=== PATIENT | female | born 1980 | race Caucasian/White ===

== ENCOUNTER 2016-10-03 17:27 | Emergency (ER) | payer OTHER ==
[2016-10-03 17:31] VITALS: TEMP 97.4
[2016-10-03] MEDS ORDERED: NALOXONE 0.4 MG/ML 10 ML VIAL IVP STA ×3 (17:40→19:12)
[2016-10-03] MEDS ORDERED: SODIUM CHLORIDE 0.9% 500 ML IV STA (17:40)
[2016-10-03] MEDS ORDERED: SODIUM CHLORIDE 0.9% 1,000 ML IV STA (17:40)
[2016-10-03] MEDS ORDERED: NALOXONE 0.4 MG/ML 1 ML VIAL IV STA (17:42)
--- NOTE | 2016-10-03 17:48 | ED ---
Overdose HPI - General Chief Complaint: Overdose Stated Complaint: POSS OVERDOSE Time Seen by Provider: 10/03/16 17:30 Source: patient, family, RN notes reviewed Mode of arrival: wheelchair Limitations: altered mental status - History of Present Illness Initial Comments: This is a 36-year-old female who was found unresponsive on the couch by her 13- year-old daughter prior to admission the patient was brought in by her who found her unresponsive on the couch when he got home from work. She did admit upon arrival here that she snorted heroin at about 4:30 this afternoon. She denies any injection denies any other drug. She denies trying to hurt herself. She was brought in for evaluation. MD Complaint: accidental overdose - Related Data Home Medications Medication Instructions Recorded Confirmed No Known Home Medications [No 06/01/16 10/03/16 Known Home Medications] Allergies Allergy/AdvReac Type Severity Reaction Status Date / Time morphine Allergy Itching Verified 10/03/16 18:40 Review of Systems ROS Statement: Those systems with pertinent positive or pertinent negative responses have been documented in the HPI. ROS Other: All systems not noted in ROS Statement are negative. Past Medical History Past Medical History: Fibromyalgia Additional Past Medical History / Comment(s): endometriosis, IBS History of Any Multi-Drug Resistant Organisms: None Reported Additional Past Surgical History / Comment(s): laprascopy Past Psychological History: Anxiety, Bipolar, Depression, Panic Disorder Smoking Status: Current every day smoker Past Alcohol Use History: None Reported Past Drug Use History: Cocaine, Heroin, Marijuana General Exam - General Exam Comments Initial Comments: Is a well-developed well-nourished lethargic female Limitations: altered mental status General appearance: alert, lethargic Head exam: Present: atraumatic, normocephalic, normal inspection Eye exam: Present: normal appearance, PERRL, EOMI. Absent: scleral icterus, conjunctival injection, periorbital swelling ENT exam: Present: normal exam, mucous membranes moist Neck exam: Present: normal inspection. Absent: tenderness, meningismus, lymphadenopathy Respiratory exam: Present: normal lung sounds bilaterally. Absent: respiratory distress, wheezes, rales, rhonchi, stridor Cardiovascular Exam: Present: regular rate, normal rhythm, normal heart sounds. Absent: systolic murmur, diastolic murmur, rubs, gallop, clicks GI/Abdominal exam: Present: soft, normal bowel sounds. Absent: distended, tenderness, guarding, rebound, rigid Rectal exam: Present: deferred Extremities exam: Present: normal inspection, full ROM, normal capillary refill. Absent: tenderness, pedal edema, joint swelling, calf tenderness Back exam: Present: normal inspection Neurological exam: Present: alert, altered, CN II-XII intact Psychiatric exam: Present: flat affect Skin exam: Present: warm, dry, intact, normal color. Absent: rash Course Vital Signs 10/03/16 10/03/16 10/03/16 17:28 17:45 18:19 Temperature 97.4 F L Pulse Rate 81 95 98 Respiratory 18 18 18 Rate Blood Pressure 109/55 110/57 121/78 O2 Sat by Pulse 90 L 100 100 Oximetry 10/03/16 10/03/16 19:19 20:21 Temperature Pulse Rate 60 67 Respiratory 12 12 Rate Blood Pressure 106/66 106/64 O2 Sat by Pulse 94 L 99 Oximetry - Reevaluation(s) Reevaluation #1: 10/03/16 17:57 Patient is more responsive after the IV Narcan was given. Reevaluation #2: 10/03/16 19:19 Patient was noted to become more lethargic and did require additional Narcan. Reevaluation #3: 10/03/16 21:53 The patient persists in becoming obtunded and very lethargic and eating Narcan. Patient will be placed on Narcan drip I did discuss this with her and with her when she was lucid. Medical Decision Making - Lab Data Result diagrams: 10/03/16 17:40 10/03/16 17:40 Lab Results 10/03/16 10/03/16 10/03/16 Range/Units 17:40 17:40 17:40 WBC 6.4 (3.8-10.6) k/uL RBC 4.31 (3.80-5.40) m/uL Hgb 12.3 (11.4-16.0) gm/dL Hct 38.3 (34.0-46.0) % MCV 88.9 (80.0-100.0) fL MCH 28.5 (25.0-35.0) pg MCHC 32.0 (31.0-37.0) g/dL RDW 13.3 (11.5-15.5) % Plt Count 216 (150-450) k/uL Neutrophils % 54 % Lymphocytes % 30 % Monocytes % 7 % Eosinophils % 6 % Basophils % 1 % Neutrophils # 3.5 (1.3-7.7) k/uL Lymphocytes # 1.9 (1.0-4.8) k/uL Monocytes # 0.5 (0-1.0) k/uL Eosinophils # 0.4 (0-0.7) k/uL Basophils # 0.0 (0-0.2) k/uL Sodium (137-145) mmol/L Potassium (3.5-5.1) mmol/L Chloride (98-107) mmol/L Carbon Dioxide (22-30) mmol/L Anion Gap mmol/L BUN (7-17) mg/dL Creatinine (0.52-1.04) mg/dL Est GFR (MDRD) Af Amer (>60 ml/min/1.73 sqM) Est GFR (MDRD) Non-Af (>60 ml/min/1.73 sqM) Glucose (74-99) mg/dL Calcium (8.4-10.2) mg/dL Magnesium 2.2 (1.6-2.3) mg/dL Total Bilirubin (0.2-1.3) mg/dL AST (14-36) U/L ALT (9-52) U/L Alkaline Phosphatase (38-126) U/L Total Creatine Kinase 82 (30-135) U/L CK-MB (CK-2) 0.4 (0.0-2.4) ng/mL CK-MB (CK-2) Rel Index 0.5 Troponin I <0.012 (0.000-0.034) ng/mL Total Protein (6.3-8.2) g/dL Albumin (3.5-5.0) g/dL 10/03/16 Range/Units 17:40 WBC (3.8-10.6) k/uL RBC (3.80-5.40) m/uL Hgb (11.4-16.0) gm/dL Hct (34.0-46.0) % MCV (80.0-100.0) fL MCH (25.0-35.0) pg MCHC (31.0-37.0) g/dL RDW (11.5-15.5) % Plt Count (150-450) k/uL Neutrophils % % Lymphocytes % % Monocytes % % Eosinophils % % Basophils % % Neutrophils # (1.3-7.7) k/uL Lymphocytes # (1.0-4.8) k/uL Monocytes # (0-1.0) k/uL Eosinophils # (0-0.7) k/uL Basophils # (0-0.2) k/uL Sodium 142 (137-145) mmol/L Potassium 4.2 (3.5-5.1) mmol/L Chloride 108 H (98-107) mmol/L Carbon Dioxide 26 (22-30) mmol/L Anion Gap 8 mmol/L BUN 14 (7-17) mg/dL Creatinine 0.73 (0.52-1.04) mg/dL Est GFR (MDRD) Af Amer >60 (>60 ml/min/1.73 sqM) Est GFR (MDRD) Non-Af >60 (>60 ml/min/1.73 sqM) Glucose 68 L (74-99) mg/dL Calcium 8.8 (8.4-10.2) mg/dL Magnesium (1.6-2.3) mg/dL Total Bilirubin 0.5 (0.2-1.3) mg/dL AST 21 (14-36) U/L ALT 20 (9-52) U/L Alkaline Phosphatase 43 (38-126) U/L Total Creatine Kinase (30-135) U/L CK-MB (CK-2) (0.0-2.4) ng/mL CK-MB (CK-2) Rel Index Troponin I (0.000-0.034) ng/mL Total Protein 6.5 (6.3-8.2) g/dL Albumin 3.7 (3.5-5.0) g/dL - EKG Data -: EKG Interpreted by Me EKG shows normal: sinus rhythm (Sinus rhythm rate of 81 MO interval 208 QRS duration 98 QT/QTC of 400/464 evidence of incomplete right bundle-branch block no acute ST-T wave changes.) Critical Care Time Critical Care Time: Yes Critical Care Time: 37 minutes of critical care time which includes initial history physical lab and x-rays. Multiple reevaluation of the patient. Discussion with the patient and . Discussion with the admitting service and with the office secretary. Disposition Clinical Impression: Accidental heroin overdose Disposition: ADMITTED IP TO THIS HOSP Condition: Serious
[2016-10-03 17:55] LABS: Basophils % (A) 1 %; CH 28.4; CHCM 32.1; Eosinophils # (A) 0.4 k/uL (0-0.7); Eosinophils % (A) 6 %; HCT 38.3 % (34.0-46.0); HDW 2.29; HGB 12.3 gm/dL (11.4-16.0); Luc # (Auto) 0.17; Luc % (Auto) 3; Lymphocytes # (A) 1.9 k/uL (1.0-4.8); Lymphocytes % (A) 30 %; MCH 28.5 pg (25.0-35.0); MCV 88.9 fL (80.0-100.0); Mean Platelet Volume 7.6; Monocytes # (A) 0.5 k/uL (0-1.0); Monocytes % (A) 7 %; Neutrophils # (A) 3.5 k/uL (1.3-7.7); Neutrophils % (A) 54 %; RBC 4.31 m/uL (3.80-5.40); RDW 13.3 % (11.5-15.5); WBC 6.4 k/uL (3.8-10.6); WBC (Perox) 6.68
[2016-10-03 18:18] LABS: Creatine Kinase 82 U/L (30-135)
[2016-10-03 18:31] LABS: Creatine Kinase MB 0.4 ng/mL (0.0-2.4); Troponin I <0.012 ng/mL (0.000-0.034)
[2016-10-03 19:37] LABS: ALT 20 U/L (9-52); AST 21 U/L (14-36); Alkaline Phosphatase 43 U/L (38-126); Anion Gap 8 mmol/L; Blood Urea Nitrogen 14 mg/dL (7-17); Calcium 8.8 mg/dL (8.4-10.2); Carbon Dioxide 26 mmol/L (22-30); Chloride 108 mmol/L (98-107); Glucose 68 mg/dL (74-99); Non-African American GFR(MDRD) >60 (>60 ml/min/1.73 sqM); Potassium 4.2 mmol/L (3.5-5.1); Sodium 142 mmol/L (137-145); Total Bilirubin 0.5 mg/dL (0.2-1.3); Total Protein 6.5 g/dL (6.3-8.2)
[2016-10-03] MEDS ORDERED: NALOXONE 4 MG in SODIUM CHLORIDE 0.9% 100 ML IV SCH (21:45)
[2016-10-03] MEDS ORDERED: SODIUM CHLORIDE 0.9% 1,000 ML IV SCH (22:00)
[2016-10-03 22:22] VITALS: BP 98/54; PULSE 59; RESP 16
--- NOTE | 2016-10-03 22:55 | ED ---
Medical Decision Making - Medical Decision Making The original plan was to admit the patient initiated Rebounding to profound lethargy. A Narcan drip was started the patient was seen to the low from the emergency department prior to the admission being completed. She went with her significant other. She was noted to walk out without difficulty. - Lab Data Result diagrams: 10/03/16 17:40 10/03/16 17:40 Lab Results 10/03/16 10/03/16 10/03/16 Range/Units 17:40 17:40 17:40 WBC 6.4 (3.8-10.6) k/uL RBC 4.31 (3.80-5.40) m/uL Hgb 12.3 (11.4-16.0) gm/dL Hct 38.3 (34.0-46.0) % MCV 88.9 (80.0-100.0) fL MCH 28.5 (25.0-35.0) pg MCHC 32.0 (31.0-37.0) g/dL RDW 13.3 (11.5-15.5) % Plt Count 216 (150-450) k/uL Neutrophils % 54 % Lymphocytes % 30 % Monocytes % 7 % Eosinophils % 6 % Basophils % 1 % Neutrophils # 3.5 (1.3-7.7) k/uL Lymphocytes # 1.9 (1.0-4.8) k/uL Monocytes # 0.5 (0-1.0) k/uL Eosinophils # 0.4 (0-0.7) k/uL Basophils # 0.0 (0-0.2) k/uL Sodium (137-145) mmol/L Potassium (3.5-5.1) mmol/L Chloride (98-107) mmol/L Carbon Dioxide (22-30) mmol/L Anion Gap mmol/L BUN (7-17) mg/dL Creatinine (0.52-1.04) mg/dL Est GFR (MDRD) Af Amer (>60 ml/min/1.73 sqM) Est GFR (MDRD) Non-Af (>60 ml/min/1.73 sqM) Glucose (74-99) mg/dL Calcium (8.4-10.2) mg/dL Magnesium 2.2 (1.6-2.3) mg/dL Total Bilirubin (0.2-1.3) mg/dL AST (14-36) U/L ALT (9-52) U/L Alkaline Phosphatase (38-126) U/L Total Creatine Kinase 82 (30-135) U/L CK-MB (CK-2) 0.4 (0.0-2.4) ng/mL CK-MB (CK-2) Rel Index 0.5 Troponin I <0.012 (0.000-0.034) ng/mL Total Protein (6.3-8.2) g/dL Albumin (3.5-5.0) g/dL Urine Opiates Screen (NotDetected) Ur Oxycodone Screen (NotDetected) Urine Methadone Screen (NotDetected) Ur Propoxyphene Screen (NotDetected) Ur Barbiturates Screen (NotDetected) U Tricyclic Antidepress (NotDetected) Ur Phencyclidine Scrn (NotDetected) Ur Amphetamines Screen (NotDetected) U Methamphetamines Scrn (NotDetected) U Benzodiazepines Scrn (NotDetected) Urine Cocaine Screen (NotDetected) U Marijuana (THC) Screen (NotDetected) 10/03/16 10/03/16 Range/Units 17:40 21:58 WBC (3.8-10.6) k/uL RBC (3.80-5.40) m/uL Hgb (11.4-16.0) gm/dL Hct (34.0-46.0) % MCV (80.0-100.0) fL MCH (25.0-35.0) pg MCHC (31.0-37.0) g/dL RDW (11.5-15.5) % Plt Count (150-450) k/uL Neutrophils % % Lymphocytes % % Monocytes % % Eosinophils % % Basophils % % Neutrophils # (1.3-7.7) k/uL Lymphocytes # (1.0-4.8) k/uL Monocytes # (0-1.0) k/uL Eosinophils # (0-0.7) k/uL Basophils # (0-0.2) k/uL Sodium 142 (137-145) mmol/L Potassium 4.2 (3.5-5.1) mmol/L Chloride 108 H (98-107) mmol/L Carbon Dioxide 26 (22-30) mmol/L Anion Gap 8 mmol/L BUN 14 (7-17) mg/dL Creatinine 0.73 (0.52-1.04) mg/dL Est GFR (MDRD) Af Amer >60 (>60 ml/min/1.73 sqM) Est GFR (MDRD) Non-Af >60 (>60 ml/min/1.73 sqM) Glucose 68 L (74-99) mg/dL Calcium 8.8 (8.4-10.2) mg/dL Magnesium (1.6-2.3) mg/dL Total Bilirubin 0.5 (0.2-1.3) mg/dL AST 21 (14-36) U/L ALT 20 (9-52) U/L Alkaline Phosphatase 43 (38-126) U/L Total Creatine Kinase (30-135) U/L CK-MB (CK-2) (0.0-2.4) ng/mL CK-MB (CK-2) Rel Index Troponin I (0.000-0.034) ng/mL Total Protein 6.5 (6.3-8.2) g/dL Albumin 3.7 (3.5-5.0) g/dL Urine Opiates Screen Detected H (NotDetected) Ur Oxycodone Screen Not Detected (NotDetected) Urine Methadone Screen Not Detected (NotDetected) Ur Propoxyphene Screen Not Detected (NotDetected) Ur Barbiturates Screen Not Detected (NotDetected) U Tricyclic Antidepress Not Detected (NotDetected) Ur Phencyclidine Scrn Not Detected (NotDetected) Ur Amphetamines Screen Not Detected (NotDetected) U Methamphetamines Scrn Not Detected (NotDetected) U Benzodiazepines Scrn Not Detected (NotDetected) Urine Cocaine Screen Detected H (NotDetected) U Marijuana (THC) Screen Detected H (NotDetected) Disposition Clinical Impression: Accidental heroin overdose Disposition: ADMITTED IP TO THIS [facility] Condition: Serious Referrals: Ildefonso Alcala MD [Primary Care Provider] - 1-2 days
== END 2016-10-03 22:59 | disposition other institution (70) ==
LOC: EC 17:27 → 6ICU 21:55 → UNDOADMIN 21:55 → EC 22:59
DX: T40.1X1A Poisoning by heroin, accidental (unintentional), initial encounter (principal); F17.200 Nicotine dependence, unspecified, uncomplicated; Z88.5 Allergy status to narcotic agent
CPT/HCPCS: 99285; 96365; 96376 ×2; 96361 ×5; 36415; 93005; 80053; 82550; 82553; 83735; 84484; 85025; 80306; J2310 ×2

== ENCOUNTER 2016-11-27 12:08 | Inpatient (IN) | payer MEDICAID, OTHER ==
--- NOTE | 2016-11-27 14:09 | ED ---
General Adult HPI - General Chief complaint: Psychiatric Symptoms Stated complaint: Mental Health Time Seen by Provider: 11/27/16 13:19 Source: police, RN notes reviewed, old records reviewed Mode of arrival: ambulatory Limitations: no limitations - History of Present Illness Initial comments: This is a 28-year-old female the ER for evaluation of psychiatric disease and medical evaluation medical clearance. Patient is brought in by PD for evaluation of suicidal thoughts suicidal attempt and suicide note written. - Related Data Home Medications Medication Instructions Recorded Confirmed No Known Home Medications [No 06/01/16 11/27/16 Known Home Medications] Allergies Allergy/AdvReac Type Severity Reaction Status Date / Time morphine Allergy Itching Verified 11/27/16 12:58 Review of Systems ROS Statement: Those systems with pertinent positive or pertinent negative responses have been documented in the HPI. ROS Other: All systems not noted in ROS Statement are negative. Past Medical History Past Medical History: Fibromyalgia Additional Past Medical History / Comment(s): endometriosis, IBS History of Any Multi-Drug Resistant Organisms: None Reported Additional Past Surgical History / Comment(s): laprascopy Past Psychological History: Anxiety, Bipolar, Depression, Panic Disorder Smoking Status: Current every day smoker Past Alcohol Use History: Occasional Past Drug Use History: Cocaine, Heroin, Marijuana General Exam Limitations: no limitations General appearance: alert, in no apparent distress Head exam: Present: atraumatic, normocephalic, normal inspection Eye exam: Present: normal appearance, PERRL, EOMI. Absent: scleral icterus, conjunctival injection, periorbital swelling ENT exam: Present: normal exam, mucous membranes moist Neck exam: Present: normal inspection. Absent: tenderness, meningismus, lymphadenopathy Respiratory exam: Present: normal lung sounds bilaterally. Absent: respiratory distress, wheezes, rales, rhonchi, stridor Cardiovascular Exam: Present: regular rate, normal rhythm, normal heart sounds. Absent: systolic murmur, diastolic murmur, rubs, gallop, clicks GI/Abdominal exam: Present: soft, normal bowel sounds. Absent: distended, tenderness, guarding, rebound, rigid Extremities exam: Present: normal inspection, full ROM, normal capillary refill. Absent: tenderness, pedal edema, joint swelling, calf tenderness Back exam: Present: normal inspection Neurological exam: Present: alert, oriented X3, CN II-XII intact Psychiatric exam: Present: normal affect, normal mood Skin exam: Present: warm, dry, intact, normal color. Absent: rash Course Vital Signs 11/27/16 12:36 Temperature 97.7 F Pulse Rate 91 Respiratory 18 Rate Blood Pressure 138/80 O2 Sat by Pulse 100 Oximetry - Reevaluation(s) Reevaluation #1: 11/27/16 14:09 Patient's medical clear for psychiatric evaluation Medical Decision Making - Medical Decision Making he had a year for evaluation of psychiatric disease, patient stating that it with psychiatrist and will be admitted for psychiatric evaluation and treatment Disposition Clinical Impression: Depression, Suicidal ideation Disposition: TRANSFER TO PSYCH HOSP/UNIT Condition: Fair Referrals: None,Stated [Primary Care Provider] - 1-2 days
[2016-11-27] MEDS ORDERED: LORazepam 2 MG/ML SYRINGE IM STA (17:27)
[2016-11-27] MEDS ORDERED: diphenhydrAMINE 50 MG/ML 1 ML VIAL IM STA (17:27)
[2016-11-27] MEDS ORDERED: ZIPRASIDONE 20 MG VIAL IM PRN (19:18)
[2016-11-27] MEDS ORDERED: MAG HYDROX/AL HYDROX/SIMETH 30 ML CUP PO PRN (19:18)
[2016-11-27] MEDS ORDERED: MAGNESIUM HYDROXIDE 2,400 MG/10 ML CUP PO PRN (19:18)
[2016-11-27] MEDS: NICOTINE 21MG/24HR PATCH TRANSDERM SCH (20:07)
[2016-11-27] MEDS: LORazepam 1 MG TAB PO PRN (20:07)
[2016-11-28] MEDS: LORazepam 1 MG TAB PO PRN ×3 (00:54→18:42)
[2016-11-28] MEDS: ACETAMINOPHEN TAB 325 MG TAB PO PRN ×3 (01:43→18:43)
[2016-11-28 08:44] LABS: Basophils % (A) 1 %; CH 28.3; CHCM 30.9; Eosinophils # (A) 0.2 k/uL (0-0.7); Eosinophils % (A) 2 %; HCT 41.5 % (34.0-46.0); HDW 2.03; HGB 12.6 gm/dL (11.4-16.0); Luc # (Auto) 0.14; Luc % (Auto) 2; Lymphocytes # (A) 1.9 k/uL (1.0-4.8); Lymphocytes % (A) 21 %; MCH 27.9 pg (25.0-35.0); MCHC 30.4 g/dL (31.0-37.0); Mean Platelet Volume 6.7; Monocytes # (A) 0.5 k/uL (0-1.0); Monocytes % (A) 5 %; Neutrophils # (A) 6.1 k/uL (1.3-7.7); Neutrophils % (A) 70 %; RBC 4.51 m/uL (3.80-5.40); RDW 13.3 % (11.5-15.5); WBC 8.8 k/uL (3.8-10.6); WBC (Perox) 8.53
[2016-11-28 09:06] LABS: ALT 25 U/L (9-52); AST 24 U/L (14-36); Alkaline Phosphatase 43 U/L (38-126); Anion Gap 9 mmol/L; Blood Urea Nitrogen 14 mg/dL (7-17); Calcium 8.9 mg/dL (8.4-10.2); Carbon Dioxide 27 mmol/L (22-30); Chloride 107 mmol/L (98-107); Glucose 82 mg/dL (74-99); Non-African American GFR(MDRD) >60 (>60 ml/min/1.73 sqM); Potassium 4.7 mmol/L (3.5-5.1); Sodium 143 mmol/L (137-145); Total Bilirubin 0.4 mg/dL (0.2-1.3); Total Protein 6.6 g/dL (6.3-8.2)
[2016-11-28] MEDS: NICOTINE 21MG/24HR PATCH TRANSDERM SCH ×2 (09:56→22:02)
[2016-11-28 13:48] LABS: Appearance,Urine Clear (Clear); Bilirubin,Urine Negative (Negative); Glucose,Urine (UA) Negative (Negative); Ketones,Urine Negative (Negative); Leukocyte Esterase,Urine Negative (Negative); Nitrite,Urine Negative (Negative); Protein,Urine Negative (Negative); Specific Gravity,Urine 1.003 (1.001-1.035); UA Billing (MACRO vs. MICRO) CHEM; Urobilinogen,Urine <2.0 mg/dL (<2.0)
--- NOTE | 2016-11-28 15:30 | P.CONS ---
History of Present Illness - Reason for Consult Consult date: 11/28/16 Medical management Requesting physician: Jaimee Young - Chief Complaint Severe depression, suicidal ideation, substance abuse, smoking. - History of Present Illness 36-year-old female with chronic history of fibromyalgia, endometriosis , smoking and IBS apparently had chronic depression and bipolar disorders has been going through a rough time in her life she is going through divorce. Patient was in to see her counselor for the first time she show him up home she wrote partially its suicidal note. Patient had pocketknife with her. With the above problem her counselor contacted the cigar maker department patient was petitioned and brought to the emergency department and hospitalized in psych unit with above problem. Review of Systems Constitutional: Reports anorexia, Reports fatigue, Reports lethargy, Reports malaise, Reports weakness, Denies as per HPI, Denies chills, Denies chronic headaches, Denies chronic pain, Denies daytime sleepiness, Denies fever, Denies night sweats, Denies poor appetite, Denies sweats, Denies weight gain, Denies weight loss Eyes: bilateral as per HPI Ears: bilateral: decreased hearing Ears, nose, mouth and throat: Reports ant. neck pain, Reports sinus pressure, Denies as per HPI, Denies bleeding gums, Denies dental pain, Denies dysphagia, Denies epistaxis, Denies headache, Denies hoarseness, Denies mouth pain, Denies nasal congestion, Denies nasal discharge, Denies neck fullness/pressure, Denies neck lump, Denies nose pain, Denies odynophagia, Denies post-nasal drip, Denies sinus pain, Denies swelling in mouth, Denies swelling in throat, Denies sore throat, Denies vertigo, Denies voice changes Cardiovascular: Reports lightheadedness, Reports orthopnea, Denies as per HPI, Denies chest pain, Denies claudication, Denies decreased exercise tolerance, Denies dyspnea on exertion, Denies edema, Denies high blood pressure, Denies irregular heart beat, Denies leg edema, Denies palpitations, Denies paroxysmal nocturnal dyspnea, Denies phlebitis, Denies rapid heart beat, Denies shortness of breath, Denies syncope Respiratory: Reports cough, Reports dyspnea, Denies as per HPI, Denies congestion, Denies cough with sputum, Denies excessive sputum, Denies hemoptysis , Denies home oxygen, Denies pain, Denies pain on inspiration, Denies pleurisy, Denies respiratory infections, Denies sleep apnea, Denies snoring, Denies wheezing Gastrointestinal: Reports dyspepsia, Reports nausea, Denies as per HPI, Denies abdominal pain, Denies belching, Denies bloating, Denies BRBPR, Denies change in bowel habits, Denies coffee ground emesis, Denies constipation, Denies diarrhea, Denies early satiety, Denies excessive gas, Denies heartburn, Denies hematemesis, Denies hematochezia, Denies indigestion, Denies jaundice, Denies lactose intolerance, Denies loss of appetite, Denies melena, Denies vomiting Genitourinary: Reports stress incontinence, Reports urgency, Reports urinary frequency, Denies as per HPI, Denies abnormal vaginal bleeding, Denies decreased libido, Denies difficulty conceiving, Denies difficulty voiding, Denies dysmenorrhea, Denies dyspareunia, Denies dysuria, Denies flank pain, Denies genital sores, Denies hematuria, Denies hot flashes, Denies incomplete emptying, Denies kidney stones, Denies menorrhagia, Denies mixed incontinence, Denies nocturia, Denies pelvic pain, Denies post void dribbling, Denies , Denies prolapse symptoms, Denies urge incontinence, Denies vaginal discharge, Denies vaginal dryness, Denies vaginal itching, Denies vaginal odor Musculoskeletal: Reports arm numbness/tingling, Reports myalgias, Reports neck pain, Denies as per HPI, Denies atrophy, Denies fractures, Denies frequent falls , Denies gait dysfunction, Denies hot joints, Denies leg numbness/tingling, Denies limitation of motion, Denies loss of height, Denies low back pain, Denies morning stiffness, Denies muscle cramps, Denies muscle weakness, Denies neck stiffness, Denies prior amputations, Denies redness of joints, Denies shooting arm pain, Denies shooting leg pain Musculoskeletal: bilateral: ankle pain Integumentary: Reports dryness, Reports pruritus, Reports sores, Reports striae , Denies as per HPI, Denies acne, Denies boils, Denies brittle nails, Denies change in hair/nails, Denies color changes, Denies darkening of skin, Denies depigmentation, Denies foot/leg ulcers, Denies growths, Denies hirsutism, Denies lesions, Denies onychomycosis, Denies rash, Denies unusual bruising, Denies wounds Neurological: Reports hearing difficulties, Reports tingling, Reports transient paralysis, Reports tremors, Reports weakness, Denies as per HPI, Denies aphasia , Denies ataxia, Denies balance difficulties, Denies burning pain, Denies change in mentation, Denies change in smell/taste, Denies change in speech, Denies confusion, Denies convulsions, Denies double vision, Denies gait dysfunction, Denies head injury, Denies headaches, Denies lack of coordination, Denies loss of vision, Denies memory loss, Denies migraines, Denies motor disturbance, Denies numbness, Denies paralysis, Denies paresthesias, Denies seizures, Denies sensory deficit, Denies spasticity, Denies syncope, Denies tic , Denies vertigo, Denies visual changes Psychiatric: Reports mood swings, Denies as per HPI, Denies anhedonia, Denies anxiety, Denies anxiety attacks, Denies change in appetite, Denies change in libido, Denies change in sleep habits, Denies confusion, Denies depression, Denies difficulty concentrating, Denies disorientation, Denies hallucinations, Denies hopelessness, Denies hypersomnia, Denies insomnia, Denies irritability, Denies memory loss, Denies paranoia, Denies sadness/tearfulness, Denies sleep disturbances, Denies suicidal ideation Endocrine: Reports nocturia, Reports polyuria, Denies as per HPI, Denies cold intolerance, Denies deepening of the voice, Denies excessive sweating, Denies excessive thirst, Denies fatigue, Denies flushing, Denies heat intolerance, Denies high blood sugars, Denies increase in ring/shoe/hat size, Denies low blood sugars, Denies palpitations, Denies polydipsia, Denies polyphagia, Denies proptosis, Denies recent glucocorticoid use, Denies thyroid mass, Denies weight change Hematologic/Lymphatic: Reports easy bruising, Denies as per HPI, Denies easy bleeding, Denies lymphadenopathy, Denies lymphedema, Denies thrombophilia Allergic/Immunologic: Reports allergic rhinitis, Denies as per HPI, Denies anaphylaxis, Denies angioedema, Denies gluten intolerance, Denies persistent infections, Denies seasonal allergies, Denies urticaria, Denies wheezing Past Medical History Past Medical History: Fibromyalgia Additional Past Medical History / Comment(s): endometriosis, IBS History of Any Multi-Drug Resistant Organisms: None Reported Additional Past Surgical History / Comment(s): laprascopy Past Psychological History: Anxiety, Bipolar, Depression, Panic Disorder Smoking Status: Current every day smoker Past Alcohol Use History: Occasional Past Drug Use History: Cocaine, Heroin, Marijuana Medications and Allergies Home Medications Medication Instructions Recorded Confirmed Type No Known Home Medications [No 06/01/16 11/27/16 History Known Home Medications] Allergies Allergy/AdvReac Type Severity Reaction Status Date / Time morphine Allergy Itching Verified 11/27/16 12:58 Physical Exam Vitals: Vital Signs Temp Pulse Resp BP 11/28/16 03:44 97.6 F 86 18 109/68 11/27/16 19:54 98 F 79 18 132/85 - Constitutional General appearance: no average body habitus, cooperative, no disheveled, no mild distress, no morbidly obese, no acute distress, no obese, no severe distress, no thin - EENT Eyes: no abnormal pupil, no anicteric sclerae, no disc margins sharp, no edentulous, no EOMI, no PERRLA, no fundus normal, no photophobia, no dentition normal, no poor dentition, no ptosis, no scleral icterus, no normal appearance ENT: no hard of hearing, no hearing grossly normal, no NA/AT, normal oropharynx , no other, no pharyngeal erythema, no thrush, no tonsillar exudates, no tonsillar swelling Ears: bilateral: normal - Neck Neck: no lymphadenopathy, normal ROM, no other, no rigidity, no stridor, no thyromegaly Carotids: bilateral: upstroke normal Thyroid: bilateral: normal size - Respiratory Respiratory: bilateral: CTA, diminished, dullness - Cardiovascular Rhythm: regular Heart sounds: normal: S1, S2 Abnormal Heart Sounds: systolic murmur, no diastolic murmur, no rub, no S3 Gallop, no S4 Gallop, no click, no other - Gastrointestinal General gastrointestinal: no absent bowel sounds, no decreased bowel sounds, no distended, no hepatomegaly, no hyperactive bowel sounds, normal bowel sounds, no organomegaly, no rigid, no scaphoid, soft, no splenomegaly, no tenderness, no umbilical hernia, no ventral hernia - Integumentary Integumentary: no calor, no cellulitis, no cyanotic, no decreased turgor, no flushed, no jaundiced, normal, no normal turgor, pale, no rash, no ulcer - Neurologic Neurologic: CNII-XII intact - Musculoskeletal Musculoskeletal: gait normal, generalized weakness, no strength equal bilaterally, no right sided weakness, no left sided weakness - Psychiatric Psychiatric: A&O x's 3 Results CBC & Chem 7: 11/28/16 08:05 11/28/16 08:05 Labs: Abnormal Lab Results - Last 24 Hours (Table) 11/28/16 Range/Units 08:05 MCHC 30.4 L (31.0-37.0) g/dL Assessment and Plan Plan: 1 severe depression and suicidal ideation: Patient was hospitalized started on Ativan and [place] will be seen psych on regular basis. 2 chronic history of smoking: Patient was started on nicotine patch continue medication. 3 history of fibromyalgia: Patient has been doing well with Tylenol and ibuprofen as needed. 4 IBS: Not on any treatment or management lately continue patient on probiotic. 5 GERD: Continue Pepcid 20 mg daily. 6 chronic substance use: Patient apparently has been clear lately. CODE STATUS: Full code. Dr. Young thank you very much for the consult if I can be any further help to please let me know.
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
[2016-11-28] MEDS: GABAPENTIN 400 MG CAP PO SCH (21:51)
[2016-11-29] MEDS: LORazepam 1 MG TAB PO PRN ×3 (00:15→18:53)
[2016-11-29] MEDS: ACETAMINOPHEN TAB 325 MG TAB PO PRN ×3 (00:16→23:14)
[2016-11-29] MEDS: ARIPiprazole 5 MG TAB PO SCH (09:10)
[2016-11-29] MEDS: NICOTINE 21MG/24HR PATCH TRANSDERM SCH (09:10)
[2016-11-29] MEDS: GABAPENTIN 400 MG CAP PO SCH ×3 (09:10→20:22)
[2016-11-29] MEDS: FAMOTIDINE 20 MG TAB PO SCH (09:10)
[2016-11-29] MEDS ORDERED: traZODone HCL 50 MG TAB PO PRN (13:26)
--- NOTE | 2016-11-29 15:24 | P.PN ---
Progress Note - Text Date of service: 11/29/2016 Chief complaint: "My mood is better today " Subjective: The patient has been seen today as follow-up, chart reviewed, case discussed with the treatment team. The patient stated that she feels better today with this depressed mood feeling more positive and she feels more active. Patient denies feeling hopeless and she denies any suicidal or homicidal thoughts intention or plan. Patient is very preoccupied about discharge and she requested to have contact with social worker aide to secure her bed at [facility] substance use treatment. Patient reported intense nightmares related to her prior trauma. We discussed starting prazosin and she agreed. Patient reported to still has trouble to good sleep and we discussed to give trazodone as needed. The patient denies any manic or psychotic symptoms. She reported that her appetite today is better. Review of other systems: Patient denies any physical symptoms besides what has been mentioned above. No breathing problems, no chest pain reported today. Objective: Vitals has been reviewed. Mental status examination; Appearance:the patient is appears his stated age, adequately groomed was no specific features. Gait/posture: Steady gait, normal arm was swinging, no abnormal movement Attitude and behavior: Patient was engaged, cooperative, was normal eye contact Motor activity: Patient showed no psychomotor agitation or retardation. Speech: Spontaneous, normal rate dressed and articulated. Mood: "Feeling better" Affect: Constricted Thought form: Goal-directed, linear and coherent. Thought content non delusional, denies suicidal or homicidal thoughts Perception: Denies visual hallucinations, described auditory hallucination as hearing her own internal thoughts Attention: No impairment. Patient was able to repeat serial 7. Orientation: Patient patient was fully oriented to time place person and situation. Insight: Patient has fair insight about his psychiatric disorder. Judgment: Patient has fair judgment about his psychiatric treatment. Assessment: Unspecified mood disorder PTSD Opioid use disorder, severe Cannabis use disorder, severe Cocaine use disorder, severe Plan: Continue inpatient level of care Continue Abilify 5 mg by mouth daily as a mood stabilizer Continue Neurontin 400 mg by mouth 3 times a day for anxiety and post acute withdrawal syndrome Start prazosin 1 mg by mouth at bedtime for nightmares, probably increase the dose as tolerated or achieve response Continue monitoring patient's mood symptoms and the social worker aide to prepare for referral to substance use disorder treatment
[2016-11-29] MEDS: PRAZOSIN 1 MG CAP PO SCH (20:22)
[2016-11-30] MEDS: FAMOTIDINE 20 MG TAB PO SCH (08:04)
[2016-11-30] MEDS: NICOTINE 21MG/24HR PATCH TRANSDERM SCH (08:04)
[2016-11-30] MEDS: ARIPiprazole 5 MG TAB PO SCH (08:04)
[2016-11-30] MEDS: GABAPENTIN 400 MG CAP PO SCH ×3 (08:05→21:17)
[2016-11-30] MEDS: LORazepam 1 MG TAB PO PRN (08:05)
--- NOTE | 2016-11-30 11:36 | P.PN ---
Progress Note - Text INTERVERAL HISTORY: Patient seen and records reviewed, discussed with nursing staff. Patient was admitted under petition by her therapist, after completing a home that she wrote, interpreting at as imminent danger/suicidal ideation. Patient reports that she had been in [facility] for substance use, encouraged by her therapist there to write her feelings, which she did then on Wednesday met with her therapist Zi for the first time. He not knowing her, petitioned her for emergency evaluation. Patient reports that she was upset but that she had no intention of killing herself, states she has a daughter who is wonderful and wants to be here for her. Patient reports that she has an admission back to [facility] on December 04, and that she only left it in order to attend her daughter's graduation. Reports that she slept better last night with the new medicine prazosin, but she woke up feeling dizzy and nauseous. She also was started on Abilify 5 mg. Patient is staying with her parents when she is discharged, she is currently involved in a separation/divorce that she says will be messy. She has obtained a order of protection from her , but she needs to add her parents phone number and address to that PPO. That's her plan when she is discharged to go directly to the court for that as well as a new patient appointment with her primary care physician. Patient denies feeling hopeless, worthless, helpless.Denies suicidal ideation, mood improving. MENTAL STATUS EXAM:Patient alert and oriented 3, good eye contact, fair groomed in street clothing. Speech normal volume, rate and production. Coherent, logical and goal directed thought process. No EMMY, no FOI. [No TB/TW/ TI] Denied auditory and visual hallucinations. Denied paranoid ideation, delusions or IOR. Memory grossly intact Cognition above average Mood neutral, affect full range, decreased intensity, congruent with mood. Denies suicidal ideation, denies homicidal ideation. Insight partial; Judgement grossly intact for treatment purposes Assessment: Unspecified mood disorder PTSD Opioid use disorder, severe Cannabis use disorder, severe Cocaine use disorder, severe Plan: Continue inpatient level of care for safety and treatment of mood disorder. Continue Abilify 5 mg by mouth daily as a mood stabilizer Continue Neurontin 400 mg by mouth 3 times a day for anxiety and post acute withdrawal syndrome Continue prazosin 1 mg by mouth at bedtime for nightmares,no increase due to dizziness and nausea. Add Naprosyn for pain. Request hospitalist to review but avoid opiates or controlled substances D/C ativan prn. Continue monitoring patient's mood symptoms and the web content & social media manager to prepare for referral to substance use disorder treatment Family meeting today with BENJI Rosado, if positive will discharge tomorrow morning so she can keep her scheduled appt with PCP. Encourage to keep [facility] appointment. Milieu therapy.
[2016-11-30] MEDS: NAPROXEN 250 MG TAB PO PRN ×2 (14:38→22:51)
[2016-11-30 15:39] VITALS: BMI 24.3
[2016-11-30] MEDS: PRAZOSIN 1 MG CAP PO SCH (21:17)
[2016-12-01 04:57] VITALS: BP 126/79; PULSE 97; RESP 16; TEMP 97.9
[2016-12-01] MEDS: NICOTINE 21MG/24HR PATCH TRANSDERM SCH (08:01)
--- NOTE | 2016-12-01 09:19 | P.DS ---
Providers Date of admission: 11/27/16 18:25 Expected date of discharge: 12/01/16 Attending physician: Jaimee Young MD Consults: 11/27/16 19:18 Consult Physician Routine Consulting Provider: Delvis Fonseca Reason/Comments: H and P and Medical Management Do you want consulting provider notified?: Yes Primary care physician: Stated None Hospital Course: Patient was admitted after being brought to ED by parents on petition by her therapist. Patient had completed a 30 day rehab at [facility] and was discharged to attend her daughter's graduation, with plan to be readmitted December 04. Patient had been encouraged by therapist at [facility] to journal her feelings. She did this and shared her poem about , stabbing self, when she met her outpatient therapist for the first time, he petitioned her. She was adamant about not being suicidal, journaling about thoughts of . She clearly has future oriented plans, ie [facility] admission in 4 days, wanting to be here for her daughter. She was started on abilify, gabapentin, prazosin, trazodone. By second day her mood was improved, sleep slightly better. 3rd day reporting significanlty improved sleep with resulting improved mood. No psychosis No suicidal ideation MENTAL STATUS EXAM:Patient alert and oriented 3, good eye contact, fair groomed in street clothing. Speech normal volume, rate and production. Coherent, logical and goal directed thought process. No EMMY, no FOI. [No TB/TW/ TI] Denied auditory and visual hallucinations. Denied paranoid ideation, delusions or IOR. Memory grossly intact Cognition above average Mood neutral to euthymic, affect full range, decreased intensity, congruent with mood. Denies suicidal ideation, denies homicidal ideation. Insight partial; Judgement grossly intact for treatment purposes Assessment: Unspecified mood disorder PTSD Opioid use disorder, severe Cannabis use disorder, severe Cocaine use disorder, severe Safe to be discharged. SW had family meeting and mother would not allow her to live with them, wanting her to be transferred from here to [facility], but informed no clinical indication. Father agreed to allow patient to stay in a cottage [place] rear of [facility], he is providing patient with transportation as well. Pertinent Studies: none Procedures: none Patient Condition at Discharge: Stable Plan - Discharge Summary New Discharge Prescriptions: ARIPiprazole [Abilify] 5 mg PO DAILY #30 tab Gabapentin [Neurontin] 400 mg PO TID #120 cap Nicotine 21Mg/24Hr Patch [Habitrol] 1 patch TRANSDERM DAILY #7 patch Prazosin [Minipress] 1 mg PO HS #30 cap traZODone HCL [Desyrel] 50 mg PO HS PRN #30 tab PRN Reason: Insomnia Discharge Medication List ARIPiprazole [Abilify] 5 mg PO DAILY #30 tab 12/01/16 [Rx] Gabapentin [Neurontin] 400 mg PO TID #120 cap 12/01/16 [Rx] Nicotine 21Mg/24Hr Patch [Habitrol] 1 patch TRANSDERM DAILY #7 patch 12/01/16 [ Rx] Prazosin [Minipress] 1 mg PO HS #30 cap 12/01/16 [Rx] traZODone HCL [Desyrel] 50 mg PO HS PRN #30 tab 12/01/16 [Rx] Follow up Appointment(s)/Referral(s): None,Stated [Primary Care Provider] - 1-2 days Discharge Disposition: HOME SELF-CARE
[2016-12-01] MEDS: FAMOTIDINE 20 MG TAB PO SCH (10:42)
[2016-12-01] MEDS: ARIPiprazole 5 MG TAB PO SCH (10:42)
[2016-12-01] MEDS: GABAPENTIN 400 MG CAP PO SCH (10:42)
== END 2016-12-01 14:42 | disposition home or self-care (01) | DRG 885 ==
LOC: EC 12:08 → 3MHU 18:25
PROVIDERS: ADMIT Psychiatry & Neurology Addiction Medicine; ATTEND Psychiatry & Neurology Addiction Medicine
DX: F39 Unspecified mood [affective] disorder (principal); F14.20 Cocaine dependence, uncomplicated; R45.851 Suicidal ideations; F12.20 Cannabis dependence, uncomplicated; F11.90 Opioid use, unspecified, uncomplicated; F17.200 Nicotine dependence, unspecified, uncomplicated; F41.0 Panic disorder [episodic paroxysmal anxiety]; F43.10 Post-traumatic stress disorder, unspecified; K21.9 Gastro-esophageal reflux disease without esophagitis; K58.9 Irritable bowel syndrome, unspecified; M79.7 Fibromyalgia; Z79.899 Other long term (current) drug therapy; Z88.5 Allergy status to narcotic agent
CPT/HCPCS: 80053; 80306; 81003; 81025; 82075; 84443; 85025; 96372; 99285

== ENCOUNTER → 2017-07-19 | Outpatient (CLI) | payer OTHER ==
--- NOTE | 2017-07-19 10:20 | US ---
EXAMINATION TYPE: US abdomen complete DATE OF EXAM: 07/19/2017 COMPARISON: NONE CLINICAL HISTORY: 36-year-old female R10.11 RUQ Pain,R10.32 LLQ Pain. Hepatitis C, endometriosis Technique: Multiple sonographic images of the abdomen are obtained. FINDINGS: Liver Length: 17.1 cm Gallbladder Wall: 0.2 cm CBD: 0.5 cm Spleen: 10.9 cm Right Kidney: 12.1 x 6.6 x 4.6 cm Left Kidney: 12.7 x 4.6 x 6.2 cm Pancreas: hyperechoic, tail obscured by overlying bowel gas Liver: Borderline enlarged with slight increased echogenicity. No focal lesion seen. Gallbladder: wnl Evidence for sonographic Alex's sign: No CBD: wnl Spleen: wnl Right Kidney: no hydronephrosis Left Kidney: no hydronephrosis Upper IVC: wnl Abd Aorta: wnl IMPRESSION: Borderline hepatomegaly. Increased echogenicity of the liver could reflect mild hepatic steatosis or other nonspecific hepatocellular disease.
== END | disposition home or self-care (01) ==
LOC: RADUSWWP 07:45
PROVIDERS: ATTEND Family Medicine
DX: R16.0 Hepatomegaly, not elsewhere classified (principal); B18.2 Chronic viral hepatitis C; R10.11 Right upper quadrant pain; R10.32 Left lower quadrant pain
CPT/HCPCS: 76700

== ENCOUNTER 2018-04-14 16:06 | Emergency (ER) | payer OTHER ==
[2018-04-14 16:19] VITALS: RESP 18
[2018-04-14] MEDS ORDERED: LIDOCAINE 1% INJ 10MG/ML (20 ML MDV) SQ ONE (16:41)
[2018-04-14] MEDS ORDERED: SODIUM CHLORIDE 0.9% 1,000 ML IV ONE (16:41)
--- NOTE | 2018-04-14 16:50 | ED ---
Skin/Abscess/FB HPI - General Chief complaint: Skin/Abscess/Foreign Body Stated complaint: ABSCESS ON ARMS Time Seen by Provider: 04/14/18 16:19 Source: patient Mode of arrival: ambulatory Limitations: no limitations - History of Present Illness Initial comments: 37-year-old female past medical history of IV drug use with last use 5 days ago and hepatitis C who presents today for multiple abscesses of the arms bilaterally. She states that last Wednesday she noticed a raised red area on left forearm, then 2 days ago she had her boyfriend attempt to pop it and there is significant pus. Patient then noticed yesterday two more raised lesion on the left wrist and on the right forearm. Patient states she has had some chills but no fever or night sweats. She denies any Patient noticed worsening of the erythema surrounding the abscesses and was concerned about spread of infection. Upon arrival patient's temperature 99.0. Patient appears well and nontoxic. Patient denies any shortness of breath, chest pain, back pain, abdominal pain, nausea or vomiting, numbness or tingling, hematuria, constipation or diarrhea, headaches or visual changes. - Related Data Home Medications Medication Instructions Recorded Confirmed Loratadine [Claritin] 10 mg PO DAILY 04/14/18 04/14/18 Previous Rx's Medication Instructions Recorded Cephalexin [Keflex] 500 mg PO Q6HR 10 Days #40 cap 04/14/18 Ibuprofen [Motrin] 800 mg PO Q8H PRN 7 Days #21 tab 04/14/18 Sulfamethox-Tmp 800-160Mg [Bactrim 1 tab PO Q12HR 10 Days #20 tab 04/14/18 DS 800-160 mg] Allergies Allergy/AdvReac Type Severity Reaction Status Date / Time morphine Allergy Itching Verified 04/14/18 17:06 Review of Systems ROS Statement: Those systems with pertinent positive or pertinent negative responses have been documented in the HPI. ROS Other: All systems not noted in ROS Statement are negative. Constitutional: Reports: fever (felt fevered, no recorded temperature), chills Eyes: Denies: eye pain ENT: Denies: ear pain, throat pain Respiratory: Denies: cough, dyspnea, wheezes, hemoptysis, stridor Cardiovascular: Denies: chest pain, palpitations, dyspnea on exertion Gastrointestinal: Denies: abdominal pain, nausea, vomiting, diarrhea, constipation Genitourinary: Reports: dysuria (last week some dysuria). Denies: urgency, frequency, hematuria Musculoskeletal: Denies: back pain Skin: Reports: lesions (3 abscesses, 2 left arm, one right) Neurological: Denies: headache, weakness, numbness, paresthesias, confusion, abnormal gait Past Medical History Past Medical History: Fibromyalgia Additional Past Medical History / Comment(s): endometriosis, IBS History of Any Multi-Drug Resistant Organisms: None Reported Additional Past Surgical History / Comment(s): laprascopy Past Psychological History: Anxiety, Bipolar, Depression, Panic Disorder Smoking Status: Current every day smoker Past Alcohol Use History: Occasional Past Drug Use History: Heroin, Marijuana General Exam - General Exam Comments Initial Comments: General: The patient is awake and alert, in no distress, and does not appear acutely ill. Eye: Pupils are equal, round and reactive to light, extra-ocular movements are intact. No nystagmus. There is normal conjunctiva bilaterally. No signs of icterus. Ears, nose, mouth and throat: There are moist mucous membranes and no oral lesions. Neck: The neck is supple, there is no tenderness or JVD. Cardiovascular: There is a regular rate and rhythm. No murmur, rub or gallop is appreciated. Respiratory: Lungs are clear to auscultation, respirations are non-labored, breath sounds are equal. No wheezes, stridor, rales, or rhonchi. Musculoskeletal: Normal ROM at the carpals, MCP, DIP and PIP joints, no tenderness. Strength 5/5 of the UE equally b/l. Sensation intact . Radial pulses equal bilaterally 2+. Neurological: A&O x 3. CN II-XII intact, There are no obvious motor or sensory deficits. Coordination appears grossly intact. Speech is normal. Skin: Skin is warm and dry and no rashes or lesions are noted. Abscess of left forearm with central opening with eschar and surrounding erythema spreading cephalically. There is another fluctulance abscess of the distal forearm and right forearm with surrounding erythema. Psychiatric: Cooperative, appropriate mood & affect, normal judgment. Limitations: no limitations Course Vital Signs 04/14/18 04/14/18 16:17 19:48 Temperature 99.0 F 98.9 F Pulse Rate 112 H 100 Respiratory 18 18 Rate Blood Pressure 122/79 140/75 O2 Sat by Pulse 100 98 Oximetry Procedures - Incision & Drainage Consent Obtained: verbal consent Time Out Performed?: Yes Indication: 3 abscess (2 left arm, 1 right) Site: upper extremity Size (cm): 2 (each about 2cm circular in size) Anesthetic Used: lidocaine 1% Amount (mLs): 10 I&D Cleaning Method: Iodine Sterile Field Used?: Yes Scalpel Used: #11 Needle Aspiration Performed?: Yes Irrigation Performed?: Yes I&D Drainage Obtained: Pus, Blood Packing: Other (No packing given size of fluid collections) Culture Obtained?: Yes Patient Tolerated Procedure: well, no complications Medical Decision Making - Medical Decision Making 37yo with exam findings concerning for cellulitis with abscess. Dr. Alvares evaluated the patient [id number], he performed beside ultrasounds of the abscess to ensure no communication with blood vessels and confirm fluid collection location. Labs as noted above. Pt given 1L bolus. Labs as noted above. At this time Dr. Alvares has low suspicion for sepsis, Dr. Alvares plan of care is I&D with outpatient antibiotic treatment. I&D performed by myself on the 3 abscesses using sterile procedure until local anesthetic. Purulent drainage obtained from all 3 sites, I&D site not large enough to warrant packing. Bacitracin and sterile bandage applied. Pt was given starting dose of bactrim and keflex with outpt rx to continue medication. Given history of IVDU, I have concern for MRSA. Strict return parameters were discussed pt verbalized understanding. Pt discharged with primary care f/u with 1-2 days. Blood culture pending. Pt discharged in stable condition. - Lab Data Result diagrams: 04/14/18 17:32 04/14/18 17:32 Lab Results 04/14/18 04/14/18 04/14/18 Range/Units 17:32 17:32 17:32 WBC 13.5 H (3.8-10.6) k/uL RBC 5.23 (3.80-5.40) m/uL Hgb 13.4 (11.4-16.0) gm/dL Hct 42.5 (34.0-46.0) % MCV 81.2 (80.0-100.0) fL MCH 25.5 (25.0-35.0) pg MCHC 31.5 (31.0-37.0) g/dL RDW 15.5 (11.5-15.5) % Plt Count 322 (150-450) k/uL Neutrophils % 77 % Lymphocytes % 15 % Monocytes % 6 % Eosinophils % 0 % Basophils % 0 % Neutrophils # 10.4 H (1.3-7.7) k/uL Lymphocytes # 2.0 (1.0-4.8) k/uL Monocytes # 0.8 (0-1.0) k/uL Eosinophils # 0.1 (0-0.7) k/uL Basophils # 0.0 (0-0.2) k/uL Sodium 141 (137-145) mmol/L Potassium 4.5 (3.5-5.1) mmol/L Chloride 109 H (98-107) mmol/L Carbon Dioxide 23 (22-30) mmol/L Anion Gap 9 mmol/L BUN 12 (7-17) mg/dL Creatinine 0.56 (0.52-1.04) mg/dL Est GFR (CKD-EPI)AfAm >90 (>60 ml/min/1.73 sqM) Est GFR (CKD-EPI)NonAf >90 (>60 ml/min/1.73 sqM) Glucose 84 (74-99) mg/dL Plasma Lactic Acid Scotty 1.3 (0.7-2.0) mmol/L Calcium 9.1 (8.4-10.2) mg/dL Total Bilirubin 0.6 (0.2-1.3) mg/dL AST 22 (14-36) U/L ALT 27 (9-52) U/L Alkaline Phosphatase 80 (38-126) U/L Total Protein 7.5 (6.3-8.2) g/dL Albumin 3.7 (3.5-5.0) g/dL Disposition Clinical Impression: Cellulitis and abscess of unspecified site Disposition: HOME SELF-CARE Condition: Good Instructions: Cellulitis (ED), Abscess Incision and Drainage (ED), Abscess (ED) Additional Instructions: Please use medication as discussed. Please follow-up with family doctor in the next 2 days.. Please return to emergency room if the symptoms increase or worsen or for any other concerns, including rapid spread of redness, significant spread of redness, increasing pain/warmth/redness, fever or any additional concerns. Prescriptions: Cephalexin [Keflex] 500 mg PO Q6HR 10 Days #40 cap Ibuprofen [Motrin] 800 mg PO Q8H PRN 7 Days #21 tab PRN Reason: Pain Sulfamethox-Tmp 800-160Mg [Bactrim DS 800-160 mg] 1 tab PO Q12HR 10 Days #20 tab Is patient prescribed a controlled substance at d/c from ED?: No Referrals: Brandee Potter MD [Primary Care Provider] - 1-2 days Time of Disposition: 19:14
[2018-04-14 17:48] LABS: Basophils % (A) 0 %; Eosinophils # (A) 0.1 k/uL (0-0.7); Eosinophils % (A) 0 %; HCT 42.5 % (34.0-46.0); HGB 13.4 gm/dL (11.4-16.0); Lymphocytes % (A) 15 %; MCH 25.5 pg (25.0-35.0); MCHC 31.5 g/dL (31.0-37.0); MCV 81.2 fL (80.0-100.0); Mean Platelet Volume 7.1; Monocytes # (A) 0.8 k/uL (0-1.0); Monocytes % (A) 6 %; Neutrophils # (A) 10.4 k/uL (1.3-7.7); Neutrophils % (A) 77 %; Platelet Count 322 k/uL (150-450); RBC 5.23 m/uL (3.80-5.40); RDW 15.5 % (11.5-15.5); WBC 13.5 k/uL (3.8-10.6)
[2018-04-14 17:57] LABS: ALT 27 U/L (9-52); AST 22 U/L (14-36); Albumin 3.7 g/dL (3.5-5.0); Alkaline Phosphatase 80 U/L (38-126); Anion Gap 9 mmol/L; Blood Urea Nitrogen 12 mg/dL (7-17); Calcium 9.1 mg/dL (8.4-10.2); Carbon Dioxide 23 mmol/L (22-30); Chloride 109 mmol/L (98-107); Glucose 84 mg/dL (74-99); Potassium 4.5 mmol/L (3.5-5.1); Sodium 141 mmol/L (137-145); Total Bilirubin 0.6 mg/dL (0.2-1.3); Total Protein 7.5 g/dL (6.3-8.2)
[2018-04-14] MEDS ORDERED: SULFAMETHOX-TMP 800-160MG 1 EACH TAB PO STA (19:13)
[2018-04-14] MEDS ORDERED: CEPHALEXIN 500 MG CAP PO STA (19:13)
[2018-04-14 19:49] VITALS: BP 140/75; PULSE 100; TEMP 98.9
== END 2018-04-14 19:49 | disposition home or self-care (01) ==
LOC: EC 16:06
DX: L03.114 Cellulitis of left upper limb (principal); L03.113 Cellulitis of right upper limb; L02.414 Cutaneous abscess of left upper limb; L02.413 Cutaneous abscess of right upper limb; F17.200 Nicotine dependence, unspecified, uncomplicated; Z88.5 Allergy status to narcotic agent; Z79.899 Other long term (current) drug therapy
CPT/HCPCS: 36415; 80053; 83605; 85025; 87040; 87070; 87205; 99283; 10061; 96360; J2001

== ENCOUNTER 2018-12-06 13:23 | Inpatient (IN) | payer MEDICAID, OTHER ==
[2018-12-06] MEDS ORDERED: LORazepam 1 MG TAB PO STA (14:02)
--- NOTE | 2018-12-06 14:10 | ED ---
General Adult HPI - General Chief complaint: Anxiety Stated complaint: anxiety Time Seen by Provider: 12/06/18 13:40 Source: patient, RN notes reviewed, old records reviewed Mode of arrival: ambulatory Limitations: no limitations - History of Present Illness Initial comments: Patient is a 38-year-old female presents emergency department today for concerns for acute psychosis after drug ingestion. Patient states that she took cocaine yesterday but continues to feel anxious, racing thoughts. She states she's had some erratic and suicidal thoughts with those thoughts. Patient states that she was recently clean for marijuana and alcohol. She did use heroin yesterday as well. Patient states that she is here to seek psychiatric help. - Related Data Home Medications Medication Instructions Recorded Confirmed Loratadine [Claritin] 10 mg PO DAILY 04/14/18 12/06/18 Cyclobenzaprine [Flexeril] 20 mg PO HS 12/06/18 12/06/18 Gabapentin [Neurontin] 300 mg PO TID 12/06/18 12/06/18 Naproxen Sodium [Aleve] 440 mg PO TID PRN 12/06/18 12/06/18 Allergies Allergy/AdvReac Type Severity Reaction Status Date / Time morphine Allergy Itching Verified 12/06/18 13:54 Review of Systems ROS Statement: Those systems with pertinent positive or pertinent negative responses have been documented in the HPI. ROS Other: All systems not noted in ROS Statement are negative. Past Medical History Past Medical History: Fibromyalgia Additional Past Medical History / Comment(s): endometriosis, IBS History of Any Multi-Drug Resistant Organisms: None Reported Additional Past Surgical History / Comment(s): laprascopy Past Psychological History: Anxiety, Bipolar, Depression, Panic Disorder Smoking Status: Current every day smoker Past Alcohol Use History: Occasional Past Drug Use History: Cocaine, Heroin, Marijuana, Methamphetamine General Exam - General Exam Comments Initial Comments: 38-year-old female. Alert and oriented 3. Patient has racing thoughts, talking to herself. Limitations: no limitations General appearance: alert, in no apparent distress Head exam: Present: atraumatic, normocephalic, normal inspection Eye exam: Present: normal appearance, PERRL, EOMI. Absent: scleral icterus, conjunctival injection, periorbital swelling ENT exam: Present: normal exam, mucous membranes moist Neck exam: Present: normal inspection. Absent: tenderness, meningismus, lymphadenopathy Respiratory exam: Present: normal lung sounds bilaterally. Absent: respiratory distress, wheezes, rales, rhonchi, stridor Cardiovascular Exam: Present: regular rate, normal rhythm, normal heart sounds. Absent: systolic murmur, diastolic murmur, rubs, gallop, clicks GI/Abdominal exam: Present: soft, normal bowel sounds. Absent: distended, tenderness, guarding, rebound, rigid Extremities exam: Present: normal inspection, full ROM, normal capillary refill. Absent: tenderness, pedal edema, joint swelling, calf tenderness Back exam: Present: normal inspection Neurological exam: Present: alert, oriented X3, CN II-XII intact Psychiatric exam: Present: normal affect, normal mood, anxious (Appears anxious, racing heart and hyperverbal.), other (Patient seen talking to herself. States that she sees and hears people that have been .) Skin exam: Present: warm, dry, intact, normal color. Absent: rash Course Vital Signs 12/06/18 12/06/18 13:25 17:40 Temperature 97.8 F 98.1 F Pulse Rate 101 H 89 Respiratory 22 17 Rate Blood Pressure 147/65 129/68 O2 Sat by Pulse 98 99 Oximetry Medical Decision Making - Medical Decision Making Patient evaluted by EPS and patient will be admitted for anxiety. - Lab Data Lab Results 12/06/18 Range/Units 17:00 Urine Opiates Screen Not Detected (NotDetected) Ur Oxycodone Screen Not Detected (NotDetected) Urine Methadone Screen Not Detected (NotDetected) Ur Propoxyphene Screen Not Detected (NotDetected) Ur Barbiturates Screen Not Detected (NotDetected) U Tricyclic Antidepress Not Detected (NotDetected) Ur Phencyclidine Scrn Not Detected (NotDetected) Ur Amphetamines Screen Detected H (NotDetected) U Methamphetamines Scrn Detected H (NotDetected) U Benzodiazepines Scrn Detected H (NotDetected) Urine Cocaine Screen Detected H (NotDetected) U Marijuana (THC) Screen Detected H (NotDetected) Disposition Clinical Impression: Acute anxiety Disposition: ADMITTED IP TO THIS HOSP Condition: Stable
[2018-12-06 17:34] LABS: Amphetamine Screen,Urine Detected (NotDetected); Barbiturate Screen,Urine Not Detected (NotDetected); Benzodiazepines Screen,Urine Detected (NotDetected); Cocaine Screen,Urine Detected (NotDetected); Methadone Screen, Urine Not Detected (NotDetected); Opiate Screen,Urine Not Detected (NotDetected); Oxycodone Screen, Urine Not Detected (NotDetected); Phencyclidine Screen,Urine Not Detected (NotDetected); Tricyclic Antidepressant,Urine Not Detected (NotDetected); Urn Cannabinoid Scrn Detected (NotDetected)
[2018-12-06] MEDS ORDERED: MAG HYDROX/AL HYDROX/SIMETH 30 ML CUP PO PRN (17:56)
[2018-12-06] MEDS ORDERED: ZIPRASIDONE 20 MG VIAL IM PRN (17:56)
[2018-12-06] MEDS ORDERED: MAGNESIUM HYDROXIDE 2,400 MG/10 ML CUP PO PRN (17:56)
[2018-12-06] MEDS ORDERED: LORazepam 2 MG/ML INJ IM PRN (17:59)
[2018-12-06] MEDS: GABAPENTIN 300 MG CAP PO SCH ×2 (18:21→22:14)
[2018-12-06] MEDS: LORazepam 1 MG TAB PO PRN (19:19)
[2018-12-06] MEDS: ACETAMINOPHEN TAB 325 MG TAB PO PRN (19:20)
[2018-12-06] MEDS: NICOTINE 14MG/24HR PATCH TRANSDERM SCH (20:14)
[2018-12-06] MEDS ORDERED: ZIPRASIDONE 20 MG VIAL IM ONE (20:43)
[2018-12-06] MEDS ORDERED: WATER FOR INJECTION, STERILE 10 ML IV ONE (20:43)
[2018-12-07] MEDS: ACETAMINOPHEN TAB 325 MG TAB PO PRN ×2 (05:14→15:06)
[2018-12-07 08:31] LABS: Basophils # (A) 0.1 k/uL (0-0.2); Basophils % (A) 1 %; Eosinophils # (A) 0.1 k/uL (0-0.7); Eosinophils % (A) 1 %; HCT 43.1 % (34.0-46.0); Lymphocytes # (A) 1.6 k/uL (1.0-4.8); Lymphocytes % (A) 10 %; MCH 27.6 pg (25.0-35.0); MCHC 32.4 g/dL (31.0-37.0); MCV 85.3 fL (80.0-100.0); Mean Platelet Volume 7.3; Monocytes # (A) 0.8 k/uL (0-1.0); Monocytes % (A) 5 %; Neutrophils # (A) 12.9 k/uL (1.3-7.7); Neutrophils % (A) 82 %; Platelet Count 256 k/uL (150-450); RBC 5.06 m/uL (3.80-5.40); RDW 14.1 % (11.5-15.5); WBC 15.7 k/uL (3.8-10.6)
[2018-12-07 08:44] LABS: ALT 80 U/L (9-52); AST 70 U/L (14-36); Albumin 4.5 g/dL (3.5-5.0); Alkaline Phosphatase 64 U/L (38-126); Anion Gap 9 mmol/L; Blood Urea Nitrogen 11 mg/dL (7-17); Calcium 9.7 mg/dL (8.4-10.2); Carbon Dioxide 25 mmol/L (22-30); Chloride 107 mmol/L (98-107); Cholesterol 134 mg/dL (<200); Glucose 128 mg/dL (74-99); HDL Cholesterol 50 mg/dL (40-60); LDL Cholesterol,Calculated 74 mg/dL (0-99); Potassium 3.5 mmol/L (3.5-5.1); Sodium 141 mmol/L (137-145); Total Bilirubin 1.6 mg/dL (0.2-1.3); Triglycerides 49 mg/dL (<150)
[2018-12-07] MEDS: GABAPENTIN 300 MG CAP PO SCH ×3 (09:25→20:34)
[2018-12-07] MEDS: NICOTINE 14MG/24HR PATCH TRANSDERM SCH (09:25)
[2018-12-07] MEDS: LORATADINE 10 MG TAB PO SCH (09:25)
[2018-12-07] MEDS: LORazepam 1 MG TAB PO PRN ×2 (09:26→15:07)
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
--- NOTE | 2018-12-07 12:50 | P.CONS ---
History of Present Illness - Reason for Consult Medical clearance - History of Present Illness Patient admitted for bipolar disorder and psychotic episodes. Patient is complaining of for generalized body aches and she says she has a cyst which was not operated , which appears to be physiologic ovarian cyst and she was comparing of dysuria, will obtain UA. Urine drug screen is positive for cocaine and marijuana benzodiazepines and amphetamines patient used to use IV heparin does have history of hepatitis C does have leukocytosis denied any cough. Patient was complaining of pain all over the body. Review of Systems REVIEW OF SYSTEMS: CONSTITUTIONAL: No fever, no malaise, no fatigue. HEENT: No recent visual problems or hearing problems. Denied any sore throat. CARDIOVASCULAR: No chest pain, orthopnea, PND, no palpitations, no syncope. PULMONARY: No shortness of breath, no cough, no hemoptysis. GASTROINTESTINAL: No diarrhea, no nausea, no vomiting, NEUROLOGICAL: No headaches, no weakness, no numbness. HEMATOLOGICAL: Denies any bleeding or petechiae. GENITOURINARY: Denies any burning micturition, frequency, or urgency. MUSCULOSKELETAL/RHEUMATOLOGICAL: Denies any joint pain, swelling, or any muscle pain. ENDOCRINE: Denies any polyuria or polydipsia. The rest of the 14-point review of systems is negative. Past Medical History Past Medical History: Fibromyalgia Additional Past Medical History / Comment(s): endometriosis, IBS History of Any Multi-Drug Resistant Organisms: None Reported Additional Past Surgical History / Comment(s): laprascopy Past Psychological History: Anxiety, Bipolar, Depression, Panic Disorder Smoking Status: Current every day smoker Past Alcohol Use History: Occasional Past Drug Use History: Cocaine, Heroin, Marijuana, Methamphetamine Medications and Allergies Home Medications Medication Instructions Recorded Confirmed Type Loratadine [Claritin] 10 mg PO DAILY 04/14/18 12/06/18 History Cyclobenzaprine [Flexeril] 20 mg PO HS 12/06/18 12/06/18 History Gabapentin [Neurontin] 300 mg PO TID 12/06/18 12/06/18 History Naproxen Sodium [Aleve] 440 mg PO TID PRN 12/06/18 12/06/18 History Allergies Allergy/AdvReac Type Severity Reaction Status Date / Time morphine Allergy Itching Verified 12/06/18 13:54 Physical Exam Vitals: Vital Signs Temp Pulse Pulse Resp BP BP Pulse Ox 12/07/18 05:15 97.9 F 113 H 16 115/75 12/06/18 17:55 98.8 F 111 H 16 130/81 96 12/06/18 17:40 98.1 F 89 17 129/68 99 12/06/18 13:25 97.8 F 101 H 22 147/65 98 Intake and Output 12/06/18 12/07/18 12/07/18 22:59 06:59 14:59 Other: Weight 89.981 kg PHYSICAL EXAMINATION: GENERAL: The patient is alert and oriented x3, not in any acute distress. Well developed, well nourished. HEENT: Pupils are round and equally reacting to light. EOMI. No scleral icterus. No conjunctival pallor. Normocephalic, atraumatic. No pharyngeal erythema. No thyromegaly. CARDIOVASCULAR: S1 and S2 present. No murmurs, rubs, or gallops. PULMONARY: Chest is clear to auscultation, no wheezing or crackles. ABDOMEN: Soft, nontender, nondistended, normoactive bowel sounds. No palpable organomegaly. MUSCULOSKELETAL: No joint swelling or deformity. EXTREMITIES: No cyanosis, clubbing, or pedal edema. NEUROLOGICAL: Gross neurological examination did not reveal any focal deficits. SKIN: No rashes. Results CBC & Chem 7: 12/07/18 08:09 12/07/18 08:09 Labs: Abnormal Lab Results - Last 24 Hours (Table) 12/06/18 12/07/18 12/07/18 Range/Units 17:00 08:09 08:09 WBC 15.7 H (3.8-10.6) k/uL Neutrophils # 12.9 H (1.3-7.7) k/uL Glucose 128 H (74-99) mg/dL Total Bilirubin 1.6 H (0.2-1.3) mg/dL AST 70 H (14-36) U/L ALT 80 H (9-52) U/L Ur Amphetamines Screen Detected H (NotDetected) U Methamphetamines Scrn Detected H (NotDetected) U Benzodiazepines Scrn Detected H (NotDetected) Urine Cocaine Screen Detected H (NotDetected) U Marijuana (THC) Screen Detected H (NotDetected) Assessment and Plan Plan: -Dysuria will obtain urine analysis. Patient is not a reliable historian, will not be started on any antibiotics yet patient does have leukocytosis. If urinalysis is abnormal we'll start her on antibiotics. No evidence of pneumonia clinically. -Bipolar disorder: Management as per primary service -Fibromyalgia for which patient is appropriately and gabapentin -Is ALLERGIC or insist no intervention is necessary -Polysubstance abuse extensive counseling was provided regarding that patient was counseled regarding nicotine use as well -Hepatitis C with chronic hepatitis: Follow up with gastro-oncology as an ou tpatient
[2018-12-07 14:30] VITALS: BMI 29.2
[2018-12-07 17:42] LABS: Appearance,Urine Clear (Clear); Bilirubin,Urine Negative (Negative); Blood,Urine Negative (Negative); Color,Urine Light Yellow; Glucose,Urine (UA) Negative (Negative); Ketones,Urine Negative (Negative); Leukocyte Esterase,Urine Negative (Negative); Nitrite,Urine Negative (Negative); PH, Urine 7.5 (5.0-8.0); Protein,Urine Negative (Negative); Specific Gravity,Urine 1.003 (1.001-1.035); Urobilinogen,Urine <2.0 mg/dL (<2.0)
[2018-12-07 18:54] LABS: Hemoglobin A1C 5.2 % (4.0-6.0)
[2018-12-07] MEDS ORDERED: LORazepam 1 MG TAB PO STA (20:03)
[2018-12-07] MEDS ORDERED: BENZOCAINE/MENTHOL LOZENG 1 EACH LOZENGE MUCOUS MEM PRN (20:03)
[2018-12-07] MEDS ORDERED: LORazepam 1 MG TAB PO PRN (20:03)
[2018-12-07] MEDS: NAPROXEN 250 MG TAB PO SCH (20:34)
[2018-12-07] MEDS ORDERED: PRAZOSIN 1 MG CAP PO SCH (21:00)
[2018-12-07] MEDS ORDERED: ARIPiprazole 5 MG TAB PO SCH (21:00)
[2018-12-07] MEDS ORDERED: LOPERAMIDE 2 MG CAP PO PRN (23:27)
[2018-12-08] MEDS ORDERED: diphenhydrAMINE 25 MG CAP PO STA (01:15)
[2018-12-08 06:42] VITALS: BP 120/80; PULSE 99; RESP 16; TEMP 98.4
[2018-12-08] MEDS: NAPROXEN 250 MG TAB PO SCH (07:40)
[2018-12-08] MEDS: LORATADINE 10 MG TAB PO SCH (07:41)
[2018-12-08] MEDS: NICOTINE 14MG/24HR PATCH TRANSDERM SCH (07:41)
[2018-12-08] MEDS: GABAPENTIN 300 MG CAP PO SCH (07:42)
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
== END 2018-12-08 13:49 | disposition home or self-care (01) | DRG 885 ==
LOC: EC 13:23 → 3MHU 17:33
PROVIDERS: ADMIT Psychiatry & Neurology Psychiatry; ATTEND Psychiatry & Neurology Psychiatry
DX: F31.5 Bipolar disorder, current episode depressed, severe, with psychotic features (principal); F10.10 Alcohol abuse, uncomplicated; F17.200 Nicotine dependence, unspecified, uncomplicated; F41.0 Panic disorder [episodic paroxysmal anxiety]; F43.10 Post-traumatic stress disorder, unspecified; K58.9 Irritable bowel syndrome, unspecified; M79.7 Fibromyalgia; R45.850 Homicidal ideations; Z62.810 Personal history of physical and sexual abuse in childhood; Z79.899 Other long term (current) drug therapy; Z81.8 Family history of other mental and behavioral disorders; Z91.410 Personal history of adult physical and sexual abuse; Z91.5 Personal history of self-harm
CPT/HCPCS: 80053; 80061; 80306; 81003; 81025; 83036; 84443; 85025; 87324; 99285

== ENCOUNTER → 2020-03-20 | Outpatient (CLI) | payer OTHER ==
[2020-03-20 08:58] LABS: Basophils % (A) 0 %; Eosinophils # (A) 0.2 k/uL (0-0.7); Eosinophils % (A) 2 %; HCT 40.2 % (34.0-46.0); Lymphocytes % (A) 18 %; MCH 28.6 pg (25.0-35.0); MCHC 32.4 g/dL (31.0-37.0); MCV 88.2 fL (80.0-100.0); Mean Platelet Volume 7.3; Monocytes # (A) 0.5 k/uL (0-1.0); Monocytes % (A) 5 %; Neutrophils # (A) 8.1 k/uL (1.3-7.7); Neutrophils % (A) 74 %; Platelet Count 208 k/uL (150-450); RBC 4.56 m/uL (3.80-5.40); RDW 12.8 % (11.5-15.5)
[2020-03-20 09:02] LABS: Prothrombin Time 10.7 sec (9.0-12.0)
[2020-03-20 09:09] LABS: ALT 33 U/L (4-34); AST 34 U/L (14-36); African American GFR (CKD) >90 (>60 ml/min/1.73 sqM); Albumin 3.7 g/dL (3.5-5.0); Alkaline Phosphatase 54 U/L (38-126); Anion Gap 6 mmol/L; Blood Urea Nitrogen 13 mg/dL (7-17); Carbon Dioxide 27 mmol/L (22-30); Chloride 105 mmol/L (98-107); Glucose 82 mg/dL (74-99); Non-African American GFR(CKD) >90 (>60 ml/min/1.73 sqM); Potassium 4.3 mmol/L (3.5-5.1); Sodium 138 mmol/L (137-145); Total Bilirubin 0.3 mg/dL (0.2-1.3); Total Protein 6.9 g/dL (6.3-8.2)
--- NOTE | 2020-03-20 09:59 | US ---
EXAMINATION TYPE: US liver DATE OF EXAM: 03/20/2020 COMPARISON: NONE CLINICAL HISTORY: Chronic viral Hep C B18.2. pending the start of treatment for hep c EXAM MEASUREMENTS: Liver Length: 17.6 cm Gallbladder Wall: 0.3 cm CBD: 0.7 cm Right Kidney: 10.6 x 4.5 x 5.1 cm Pancreas: wnl Liver: intercostal imaging due to bowel gas Gallbladder: contracted - pt had cream in her coffee Evidence for sonographic Alex's sign: no CBD: wnl Right Kidney: wnl IMPRESSION: 1. Ultrasound as visualized appears unremarkable. 2. No discrete hepatic masses identified.
[2020-03-20 17:37] LABS: HIV 2 AB Non-Reactive (Non-Reactive); HIV AB P24 Non-Reactive (Non-Reactive); HIV P24 AG Non-Reactive (Non-Reactive)
[2020-03-20 17:43] LABS: Alpha Fetoprotein, Tumor Mkr <2.5 ng/mL (0.0-7.9)
[2020-03-20 18:48] LABS: Hepatitis A Antibody IgM Non-Reactive (Non-Reactive); Hepatitis B Core IgM Non-Reactive (Non-Reactive); Hepatitis B Surface Antigen Non-Reactive (Non-Reactive); Hepatitis C IgG Antibody Reactive (Non-Reactive)
== END | disposition home or self-care (01) ==
LOC: RADUSWWP 07:44
PROVIDERS: ATTEND Nurse Practitioner
DX: B18.2 Chronic viral hepatitis C (principal)
CPT/HCPCS: 36415; 76705; 80053; 80074; 82105; 85025; 85610; 87390

== ENCOUNTER → 2020-05-13 | Outpatient (CLI) | payer OTHER | END | disposition home or self-care (01) | LOC: LABPRL 14:14 | PROVIDERS: ATTEND Nurse Practitioner | DX: B18.2 Chronic viral hepatitis C (principal) | CPT/HCPCS: 36415; 87522 ==

== ENCOUNTER → 2020-08-01 | Outpatient (CLI) | payer OTHER | END | disposition home or self-care (01) | LOC: LABWHC1 15:43 | PROVIDERS: ATTEND Nurse Practitioner | DX: B18.2 Chronic viral hepatitis C (principal) | CPT/HCPCS: 36415; 87522 ==

== ENCOUNTER → 2021-01-06 | Outpatient (CLI) | payer OTHER | END | disposition home or self-care (01) | LOC: RADMAMWWP 16:49 | PROVIDERS: ATTEND Obstetrics & Gynecology | DX: Z53.9 Procedure and treatment not carried out, unspecified reason (principal) ==

== ENCOUNTER 2022-10-17 10:53 | Emergency (ER) | payer OTHER ==
[2022-10-17 11:05] VITALS: TEMP 98
[2022-10-17] MEDS ORDERED: SODIUM CHLORIDE 0.9% 1,000 ML IV STA (11:46)
--- NOTE | 2022-10-17 11:55 | ED ---
Abdominal Pain HPI - General Chief Complaint: Abdominal Pain Stated Complaint: abdominal pain Time Seen by Provider: 10/17/22 11:28 Source: patient, RN notes reviewed, old records reviewed Mode of arrival: ambulatory Limitations: no limitations - History of Present Illness Initial Comments: This is a well-appearing 42-year-old female presents to the emergency room with complaints of 1 month of abdominal pain and 20, weight loss with past 4 months. Patient states that she has had a couple episodes of vomiting blood. She has had history of polysubstance abuse, IBS, endometriosis, hepatitis C. Currently taking Suboxone for heroin addiction, but also taking Aleve or Motrin for her chronic pain. Denies any alcohol or drug use today. Did state that she drank last night which caused her to vomit. Denies any fevers. Abdomen is soft and nontender. Patient states that she's also noticed some bruising to her legs without any known injuries. States she has had some rectal bleeding in the past as well. Patient states that she is also sexually active with several different partners not using protection would like to be tested for STI's. MD Complaint: abdominal pain -: month(s) (1) Location: diffuse Migration to: no migration Severity scale (1-10): 2 Consistency: now resolved Worsens With: eating (drinking alcohol) Associated Symptoms: nausea, vomiting (bloody), chills, other (20 pound weight loss in 4 months) Treatments Prior to Arrival: NSAIDs, other (suboxone) - Related Data Home Medications Medication Instructions Recorded Confirmed Loratadine [Claritin] 10 mg PO DAILY 04/14/18 12/06/18 Naproxen Sodium [Aleve] 440 mg PO TID PRN 12/06/18 12/06/18 Previous Rx's Medication Instructions Recorded ARIPiprazole [Abilify] 10 mg PO HS #14 tab 12/08/18 Gabapentin [Neurontin] 300 mg PO TID #42 cap 12/08/18 Nicotine 14Mg/24Hr Patch [Habitrol] 1 patch TRANSDERM DAILY #28 patch 12/08/18 Prazosin [Minipress] 1 mg PO HS #14 cap 12/08/18 Allergies Allergy/AdvReac Type Severity Reaction Status Date / Time morphine Allergy Itching Verified 10/17/22 11:05 Review of Systems ROS Statement: Those systems with pertinent positive or pertinent negative responses have been documented in the HPI. ROS Other: All systems not noted in ROS Statement are negative. Past Medical History Past Medical History: Fibromyalgia Additional Past Medical History / Comment(s): endometriosis, IBS, positive hepatitis C, reports a right Ovarian Cyst History of Any Multi-Drug Resistant Organisms: None Reported Additional Past Surgical History / Comment(s): laprascopy Past Psychological History: Anxiety, Bipolar, Depression, Panic Disorder Smoking Status: Current every day smoker, Vaper Past Alcohol Use History: Heavy Past Drug Use History: Cocaine, Heroin, Marijuana, Methamphetamine General Exam Limitations: no limitations General appearance: alert, in no apparent distress Head exam: Present: atraumatic, normocephalic, normal inspection Eye exam: Present: normal appearance, EOMI, other (Conjunctiva pink). Absent: scleral icterus, conjunctival injection, periorbital swelling, periorbital tenderness ENT exam: Present: normal oropharynx, mucous membranes moist Expanded Mouth exam: Present: tongue normal, tongue elevation. Absent: drooling, trismus, muffled voice Teeth exam: Present: dental caries Throat exam: negative: tonsillar erythema, tonsillomegaly, tonsillar exudate, R peritonsillar mass, L peritonsillar mass Neck exam: Present: full ROM. Absent: meningismus, lymphadenopathy Respiratory exam: Present: normal lung sounds bilaterally. Absent: respiratory distress Cardiovascular Exam: Present: tachycardia GI/Abdominal exam: Present: soft, tenderness (LLQ LUQ). Absent: distended Extremities exam: Present: full ROM, normal capillary refill Back exam: Present: normal inspection. Absent: tenderness, CVA tenderness (R), CVA tenderness (L), muscle spasm, paraspinal tenderness, vertebral tenderness, rash noted Neurological exam: Present: alert, oriented X3, CN II-XII intact, normal gait Psychiatric exam: Present: normal affect, normal mood Skin exam: Present: warm, dry, normal color. Absent: rash, cyanosis, diaphoretic, petechiae, pallor Course Vital Signs 10/17/22 10/17/22 11:01 15:37 Temperature 98 F Pulse Rate 115 H 93 Respiratory 18 16 Rate Blood Pressure 125/87 149/73 O2 Sat by Pulse 98 99 Oximetry Medical Decision Making - Medical Decision Making Patient presents with abdominal pain for a month and 2 episodes of vomiting bl ood. States that she is currently taking Suboxone for her heroin abuse. Also has chronic pain which she takes Aleve and Motrin for. CBC and electrolytes unremarkable. EKG shows sinus bradycardia with a ventricular rate of 55, MT interval 0.195, QRS 0.102, QTC 0.424, normal axis no change compared to old 10/03/16 Troponin is negative at 0.012. Urinalysis is negative. Urine test is negative. Patient states that she is sexually active not using any protection. Multiple partners. Denies any vaginal discharge or pelvic pain but is requesting it be tested for sexually transmitted infections. KUB x-ray interpreted by me shows no evidence of free air. No bowel obstruction. Radiologist interpretation overall nonobstructive bowel gas pattern. On physical exam abdomen is soft and nontender. No flank pain. Patient is hemodynamically stable. Patient was given IV fluid bolus. She states she is ready to be discharged home so she can draft roller picker her daughter. Is feeling better and wants to be discharged home. She was directed to stop taking Aleve and Motrin as this may be because of her gastric upset and bleeding. She was encouraged to follow up with her primary care doctor given a referral to Dr. Spaulding for evaluation of her complaints of vomiting blood. Case discussed with Dr Bonilla. Patient has history of fibromyalgia, endometriosis, irritable bowel syndrome, anxiety, bipolar, depression, heroin abuse, daily smoker. Was pt. sent in by a medical professional or institution (, [facility], MENTAL RETARDATION AIDE, urgent care, hospital, or retirement...) When possible be specific @ -No Did you speak to anyone other than the patient for history (EMS, parent, family, police, friend...)? What history was obtained from this source @ -No Did you review nursing and triage notes (agree or disagree)? Why? @ -I reviewed and agree with nursing and triage notes Were old charts reviewed (outside hosp., previous admission, EMS record, old EKG, old radiological studies, urgent care reports/EKG's, retirement records)? Report findings @ -No old charts were reviewed Differential Diagnosis (chest pain, altered mental status, abdominal pain women, abdominal pain men, vaginal bleeding, weakness, fever, dyspnea, syncope, h eadache, dizziness, GI bleed, back pain, seizure, CVA, palpatations, mental health, musculoskeletal)? @ -Differential Abdominal Pain Women: Appendicitis, Cholecystitis, diverticulosis, ischemic bowel, pancreatitis, hepatitis, UTI, gastroenteritis, AAA, incarcerated hernia, bowel obstruction, constipation, inflammatory bowel, hepatitis, peptic ulcer disease, splenic infarction, perforated viscus, vulvitis, ovarian torsion, PID, kidney stone, placenta abruption, this is not meant to be an all-inclusive list EKG interpreted by me (3pts min.). @ -As above X-rays interpreted by me (1pt min.). @ -yes as above CT interpreted by me (1pt min.). @ -None done U/S interpreted by me (1pt. min.). @ -None done What testing was considered but not performed or refused? (CT, X-rays, U/S, labs)? Why? @ -None What meds were considered but not given or refused? Why? @ -None Did you discuss the management of the patient with other professionals (professionals i.e. , PA, MENTAL RETARDATION AIDE, lab, RT, psych nurse, social media community manager, bank vault custodian, teacher, procurement officer, case monitor)? Give summary @ -No Was smoking cessation discussed for >3mins.? @ -No Was critical care preformed (if so, how long)? @ -No Were there social determinants of health that impacted care today? How? (Homelessness, low income, unemployed, alcoholism, drug addiction, tr ansportation, low edu. Level, literacy, decrease access to med. care, [facility], rehab)? @ -Heroin addiction currently taking Suboxone Was there de-escalation of care discussed even if they declined (Discuss DNR or withdrawal of care, Hospice)? DNR status @ -No What co-morbidities impacted this encounter? (DM, HTN, Smoking, COPD, CAD, Cancer, CVA, ARF, Chemo, Hep., AIDS, mental health diagnosis, sleep apnea, morbid obesity)? @ -fibromyalgia, endometriosis, irritable bowel syndrome, anxiety, bipolar, depression, heroin abuse, daily smoker Was patient admitted / discharged? Hospital course, mention meds given and route, prescriptions, significant lab abnormalities, going to OR and other pertinent info. @ -Discharged Undiagnosed new problem with uncertain prognosis? @ -No Drug Therapy requiring intensive monitoring for toxicity (Heparin, Nitro, Insulin, Cardizem)? @ -No Were any procedures done? @ -No Diagnosis/symptom? @ -Abdominal pain Acute, or Chronic, or Acute on Chronic? @ -Acute Uncomplicated (without systemic symptoms) or Complicated (systemic symptoms)? @ -Uncomplicated Side effects of treatment? @ -No Exacerbation, Progression, or Severe Exacerbation? @ -No Poses a threat to life or bodily function? How? (Chest pain, [place], [place], pneumonia, PE, COPD, DKA, ARF, appy, cholecystitis, CVA, Diverticulitis, Homicidal, Suicidal, threat to staff... and all critical care pts) @ -No - Lab Data Result diagrams: 10/17/22 11:58 10/17/22 11:58 Lab Results 10/17/22 10/17/22 10/17/22 Range/Units 11:58 11:58 11:58 WBC 10.5 (3.8-10.6) k/uL RBC 5.10 (3.80-5.40) m/uL Hgb 14.5 (11.4-16.0) gm/dL Hct 43.9 (34.0-46.0) % MCV 86.2 (80.0-100.0) fL MCH 28.4 (25.0-35.0) pg MCHC 32.9 (31.0-37.0) g/dL RDW 13.3 (11.5-15.5) % Plt Count 233 (150-450) k/uL MPV 7.7 Neutrophils % 79 % Lymphocytes % 13 % Monocytes % 6 % Eosinophils % 0 % Basophils % 0 % Neutrophils # 8.2 H (1.3-7.7) k/uL Lymphocytes # 1.4 (1.0-4.8) k/uL Monocytes # 0.6 (0-1.0) k/uL Eosinophils # 0.0 (0-0.7) k/uL Basophils # 0.0 (0-0.2) k/uL PT 11.0 (9.0-12.0) sec INR 1.0 (<1.2) Sodium (137-145) mmol/L Potassium (3.5-5.1) mmol/L Chloride (98-107) mmol/L Carbon Dioxide (22-30) mmol/L Anion Gap mmol/L BUN (7-17) mg/dL Creatinine (0.52-1.04) mg/dL Est GFR (CKD-EPI)AfAm (>60 ml/min/1.73 sqM) Est GFR (CKD-EPI)NonAf (>60 ml/min/1.73 sqM) Glucose (74-99) mg/dL Plasma Lactic Acid Scotty (0.7-2.0) mmol/L Calcium (8.4-10.2) mg/dL Total Bilirubin (0.2-1.3) mg/dL AST (14-36) U/L ALT (4-34) U/L Alkaline Phosphatase (38-126) U/L Troponin I (0.000-0.034) ng/mL Total Protein (6.3-8.2) g/dL Albumin (3.5-5.0) g/dL Amylase (30-110) U/L Lipase (23-300) U/L Urine Color Yellow Urine Appearance Cloudy H (Clear) Urine pH 6.0 (5.0-8.0) Ur Specific [place] 1.023 (1.001-1.035) Urine Protein Trace H (Negative) Urine Glucose (UA) Negative (Negative) Urine Ketones 2+ H (Negative) Urine Blood Negative (Negative) Urine Nitrite Negative (Negative) Urine Bilirubin Negative (Negative) Urine Urobilinogen <2.0 (<2.0) mg/dL Ur Leukocyte Esterase Negative (Negative) Urine RBC 2 (0-5) /hpf Urine WBC 4 (0-5) /hpf Ur Squamous Epith Cells 16 H (0-4) /hpf Urine Bacteria Rare H (None) /hpf Urine Mucus Moderate H (None) /hpf Urine HCG, Qual (Not Detectd) 10/17/22 10/17/22 10/17/22 Range/Units 11:58 11:58 11:58 WBC (3.8-10.6) k/uL RBC (3.80-5.40) m/uL Hgb (11.4-16.0) gm/dL Hct (34.0-46.0) % MCV (80.0-100.0) fL MCH (25.0-35.0) pg MCHC (31.0-37.0) g/dL RDW (11.5-15.5) % Plt Count (150-450) k/uL MPV Neutrophils % % Lymphocytes % % Monocytes % % Eosinophils % % Basophils % % Neutrophils # (1.3-7.7) k/uL Lymphocytes # (1.0-4.8) k/uL Monocytes # (0-1.0) k/uL Eosinophils # (0-0.7) k/uL Basophils # (0-0.2) k/uL PT (9.0-12.0) sec INR (<1.2) Sodium 137 (137-145) mmol/L Potassium 3.7 (3.5-5.1) mmol/L Chloride 103 (98-107) mmol/L Carbon Dioxide 26 (22-30) mmol/L Anion Gap 8 mmol/L BUN 14 (7-17) mg/dL Creatinine 0.59 (0.52-1.04) mg/dL Est GFR (CKD-EPI)AfAm >90 (>60 ml/min/1.73 sqM) Est GFR (CKD-EPI)NonAf >90 (>60 ml/min/1.73 sqM) Glucose 95 (74-99) mg/dL Plasma Lactic Acid Scotty 0.7 (0.7-2.0) mmol/L Calcium 9.2 (8.4-10.2) mg/dL Total Bilirubin 0.8 (0.2-1.3) mg/dL AST 22 (14-36) U/L ALT 12 (4-34) U/L Alkaline Phosphatase 50 (38-126) U/L Troponin I (0.000-0.034) ng/mL Total Protein 7.3 (6.3-8.2) g/dL Albumin 4.1 (3.5-5.0) g/dL Amylase 37 (30-110) U/L Lipase 50 (23-300) U/L Urine Color Urine Appearance (Clear) Urine pH (5.0-8.0) Ur Specific [place] (1.001-1.035) Urine Protein (Negative) Urine Glucose (UA) (Negative) Urine Ketones (Negative) Urine Blood (Negative) Urine Nitrite (Negative) Urine Bilirubin (Negative) Urine Urobilinogen (<2.0) mg/dL Ur Leukocyte Esterase (Negative) Urine RBC (0-5) /hpf Urine WBC (0-5) /hpf Ur Squamous Epith Cells (0-4) /hpf Urine Bacteria (None) /hpf Urine Mucus (None) /hpf Urine HCG, Qual Not Detected (Not Detectd) 10/17/22 Range/Units 11:58 WBC (3.8-10.6) k/uL RBC (3.80-5.40) m/uL Hgb (11.4-16.0) gm/dL Hct (34.0-46.0) % MCV (80.0-100.0) fL MCH (25.0-35.0) pg MCHC (31.0-37.0) g/dL RDW (11.5-15.5) % Plt Count (150-450) k/uL MPV Neutrophils % % Lymphocytes % % Monocytes % % Eosinophils % % Basophils % % Neutrophils # (1.3-7.7) k/uL Lymphocytes # (1.0-4.8) k/uL Monocytes # (0-1.0) k/uL Eosinophils # (0-0.7) k/uL Basophils # (0-0.2) k/uL PT (9.0-12.0) sec INR (<1.2) Sodium (137-145) mmol/L Potassium (3.5-5.1) mmol/L Chloride (98-107) mmol/L Carbon Dioxide (22-30) mmol/L Anion Gap mmol/L BUN (7-17) mg/dL Creatinine (0.52-1.04) mg/dL Est GFR (CKD-EPI)AfAm (>60 ml/min/1.73 sqM) Est GFR (CKD-EPI)NonAf (>60 ml/min/1.73 sqM) Glucose (74-99) mg/dL Plasma Lactic Acid Scotty (0.7-2.0) mmol/L Calcium (8.4-10.2) mg/dL Total Bilirubin (0.2-1.3) mg/dL AST (14-36) U/L ALT (4-34) U/L Alkaline Phosphatase (38-126) U/L Troponin I <0.012 (0.000-0.034) ng/mL Total Protein (6.3-8.2) g/dL Albumin (3.5-5.0) g/dL Amylase (30-110) U/L Lipase (23-300) U/L Urine Color Urine Appearance (Clear) Urine pH (5.0-8.0) Ur Specific [place] (1.001-1.035) Urine Protein (Negative) Urine Glucose (UA) (Negative) Urine Ketones (Negative) Urine Blood (Negative) Urine Nitrite (Negative) Urine Bilirubin (Negative) Urine Urobilinogen (<2.0) mg/dL Ur Leukocyte Esterase (Negative) Urine RBC (0-5) /hpf Urine WBC (0-5) /hpf Ur Squamous Epith Cells (0-4) /hpf Urine Bacteria (None) /hpf Urine Mucus (None) /hpf Urine HCG, Qual (Not Detectd) Disposition Clinical Impression: Abdominal pain Disposition: HOME SELF-CARE Condition: Good Instructions (If sedation given, give patient instructions): Abdominal Pain (ED) Additional Instructions: Stop taking ibuprofen and Aleve. Follow-up with Dr. Spaulding the gastroenterologis t to have an endoscopy done for your vomiting of blood. Return to the emergency room with any new or concerning symptoms. Is patient prescribed a controlled substance at d/c from ED?: No Referrals: Brandee Potter MD [Primary Care Provider] - 1-2 days Alysia Spaulding MD [STAFF PHYSICIAN] - 1-2 days Time of Disposition: 15:17
[2022-10-17 12:18] LABS: Basophils % (A) 0 %; Eosinophils % (A) 0 %; HCT 43.9 % (34.0-46.0); HGB 14.5 gm/dL (11.4-16.0); Lymphocytes # (A) 1.4 k/uL (1.0-4.8); Lymphocytes % (A) 13 %; MCH 28.4 pg (25.0-35.0); MCHC 32.9 g/dL (31.0-37.0); MCV 86.2 fL (80.0-100.0); Mean Platelet Volume 7.7; Monocytes # (A) 0.6 k/uL (0-1.0); Monocytes % (A) 6 %; Neutrophils # (A) 8.2 k/uL (1.3-7.7); Neutrophils % (A) 79 %; Platelet Count 233 k/uL (150-450); RDW 13.3 % (11.5-15.5); WBC 10.5 k/uL (3.8-10.6)
--- NOTE | 2022-10-17 12:22 | XR ---
EXAMINATION TYPE: XR [facility] DATE OF EXAM: 10/17/2022 COMPARISON: NONE HISTORY: Abdominal pain TECHNIQUE: Upright view of the abdomen was obtained with 2 radiographs. FINDINGS: Small bowel demonstrates no evidence for dilatation or air fluid levels. Gas and fecal material is seen in non-distended colon. No convincing evidence for pneumoperitoneum. No unusual calcifications. The lung bases are clear. The osseous structures are intact. IMPRESSION: Overall nonobstructive bowel gas pattern.
[2022-10-17 12:31] LABS: ALT 12 U/L (4-34); AST 22 U/L (14-36); African American GFR (CKD) >90 (>60 ml/min/1.73 sqM); Albumin 4.1 g/dL (3.5-5.0); Alkaline Phosphatase 50 U/L (38-126); Amylase 37 U/L (30-110); Anion Gap 8 mmol/L; Blood Urea Nitrogen 14 mg/dL (7-17); Calcium 9.2 mg/dL (8.4-10.2); Carbon Dioxide 26 mmol/L (22-30); Chloride 103 mmol/L (98-107); Glucose 95 mg/dL (74-99); Lipase 50 U/L (23-300); Non-African American GFR(CKD) >90 (>60 ml/min/1.73 sqM); Potassium 3.7 mmol/L (3.5-5.1); Sodium 137 mmol/L (137-145); Total Bilirubin 0.8 mg/dL (0.2-1.3); Total Protein 7.3 g/dL (6.3-8.2)
[2022-10-17 12:49] LABS: Appearance,Urine Cloudy (Clear); Bacteria,Urine Rare /hpf; Bilirubin,Urine Negative (Negative); Blood,Urine Negative (Negative); Color,Urine Yellow; Glucose,Urine (UA) Negative (Negative); Ketones,Urine 2+ (Negative); Leukocyte Esterase,Urine Negative (Negative); Mucus,Urine Moderate /hpf; Nitrite,Urine Negative (Negative); Protein,Urine Trace (Negative); RBC,Urine 2 /hpf (0-5); Specific Gravity,Urine 1.023 (1.001-1.035); Squamous Epithelial Cell,Urine 16 /hpf (0-4); Urobilinogen,Urine <2.0 mg/dL (<2.0); WBC,Urine 4 /hpf (0-5)
[2022-10-17 15:38] VITALS: BP 149/73; PULSE 93; RESP 16
== END 2022-10-17 15:38 | disposition home or self-care (01) ==
LOC: EC 10:53
DX: R10.32 Left lower quadrant pain (principal); F41.9 Anxiety disorder, unspecified; F31.9 Bipolar disorder, unspecified; F17.290 Nicotine dependence, other tobacco product, uncomplicated; F12.90 Cannabis use, unspecified, uncomplicated; Z88.5 Allergy status to narcotic agent; Z79.899 Other long term (current) drug therapy
CPT/HCPCS: 36415; 74018; 80053; 81001; 81025; 82150; 83605; 83690; 84484; 85025; 85610; 86780; 87491; 87591; 93005; 96360; 96361; 99284

== ENCOUNTER 2024-01-06 14:15 | Observation (INO) | payer OTHER ==
--- NOTE | 2024-01-06 14:41 | ED ---
Alcohol HPI - General Chief Complaint: Alcohol Stated Complaint: ETOH Time Seen by Provider: 01/06/24 14:21 Source: patient, EMS, RN notes reviewed Mode of arrival: EMS Limitations: no limitations - History of Present Illness Initial Comments: 43-year-old female presents emergency department with chief complaint of alcohol intoxication, possible drug use. Patient was brought in via EMS from home with reported multiple drug users. Patient states that she did drink alcohol today she has no physical complaints denies current drug use but does have a strong history. Patient denies any fevers or chills chest pain shortness of breath - Related Data Home Medications Medication Instructions Recorded Confirmed No Known Home Medications 01/07/24 01/07/24 Allergies Allergy/AdvReac Type Severity Reaction Status Date / Time morphine Allergy Itching, Verified 01/07/24 10:17 RASH/HIVES Review of Systems ROS Statement: Those systems with pertinent positive or pertinent negative responses have been documented in the HPI. ROS Other: All systems not noted in ROS Statement are negative. Past Medical History Past Medical History: Fibromyalgia Additional Past Medical History / Comment(s): endometriosis, IBS, positive hepatitis C, reports a right Ovarian Cyst History of Any Multi-Drug Resistant Organisms: None Reported Additional Past Surgical History / Comment(s): laprascopy Past Psychological History: Anxiety, Bipolar, Depression, Panic Disorder Smoking Status: Current every day smoker, Vaper Past Alcohol Use History: Heavy Past Drug Use History: Cocaine, Heroin, Marijuana, Methamphetamine General Exam Limitations: no limitations General appearance: alert, in no apparent distress, appears intoxicated Head exam: Present: atraumatic, normocephalic, normal inspection Eye exam: Present: normal appearance, PERRL, EOMI. Absent: scleral icterus, conjunctival injection, periorbital swelling ENT exam: Present: normal exam, mucous membranes moist Neck exam: Present: normal inspection, full ROM. Absent: tenderness, men ingismus, lymphadenopathy Respiratory exam: Present: normal lung sounds bilaterally. Absent: respiratory distress, wheezes, rales, rhonchi, stridor Cardiovascular Exam: Present: regular rate, normal rhythm, normal heart sounds. Absent: systolic murmur, diastolic murmur, rubs, gallop, clicks Neurological exam: Present: alert, oriented X3, CN II-XII intact, reflexes normal. Absent: motor sensory deficit Skin exam: Present: warm, dry, intact, normal color. Absent: rash Course Vital Signs 01/06/24 01/06/24 01/06/24 14:16 15:16 16:03 Temperature 97.8 F Pulse Rate 87 75 78 Respiratory 22 19 18 Rate Blood Pressure 125/88 97/62 104/74 O2 Sat by Pulse 100 94 L 94 L Oximetry 01/06/24 01/06/24 20:00 20:24 Temperature 98.5 F Pulse Rate 74 Respiratory 17 Rate Blood Pressure 115/79 O2 Sat by Pulse 95 Oximetry Medical Decision Making - Medical Decision Making Was pt. sent in by a medical professional or institution (, PA, RAILCAR BRAKE OPERATOR, urgent care, hospital, or prison...) When possible be specific @ -No Did you speak to anyone other than the patient for history (EMS, parent, family, police, friend...)? What history was obtained from this source @ -No Did you review nursing and triage notes (agree or disagree)? Why? @ -I reviewed and agree with nursing and triage notes Were old charts reviewed (outside hosp., previous admission, EMS record, old EKG, old radiological studies, urgent care reports/EKG's, prison records)? Report findings @ -No old charts were reviewed Differential Diagnosis (chest pain, altered mental status, abdominal pain women, abdominal pain men, vaginal bleeding, weakness, fever, dyspnea, syncope, headac he, dizziness, GI bleed, back pain, seizure, CVA, palpatations, mental health, musculoskeletal)? @ -Differential Altered Mental Status: Hypoglycemia, DKA, hypercapnia, ETOH, overdose, CO poisoning, trauma, myxedema coma, HTN encephalopathy, infection, encephalitis, psychosis, intercranial hemorrhage, hepatic encephalopathy, meningitis, CVA, this is not meant to be an all-inclusive list EKG interpreted by me (3pts min.). @ -None X-rays interpreted by me (1pt min.). @ -None done CT interpreted by me (1pt min.). @ -None done U/S interpreted by me (1pt. min.). @ -None done What testing was considered but not performed or refused? (CT, X-rays, U/S, labs)? Why? @ -None What meds were considered but not given or refused? Why? @ -None Did you discuss the management of the patient with other professionals (professionals i.e. , PA, RAILCAR BRAKE OPERATOR, lab, RT, psych nurse, public health social worker, chamfering machine operator, teacher, air antisubmarine officer, disease case manager)? Give summary @ -No Was smoking cessation discussed for >3mins.? @ -No Was critical care preformed (if so, how long)? @ -No Were there social determinants of health that impacted care today? How? (Homelessness, low income, unemployed, alcoholism, drug addiction, transporta tion, low edu. Level, literacy, decrease access to med. care, shelter, rehab)? @ -No Was there de-escalation of care discussed even if they declined (Discuss DNR or withdrawal of care, Hospice)? DNR status @ -No What co-morbidities impacted this encounter? (DM, HTN, Smoking, COPD, CAD, Cancer, CVA, ARF, Chemo, Hep., AIDS, mental health diagnosis, sleep apnea, morbid obesity)? @ -Drug abuse, alcohol abuse Was patient admitted / discharged? Hospital course, mention meds given and route, prescriptions, significant lab abnormalities, going to OR and other pertinent info. @ -Patient is pending CT, urinalysis, drug screen Case signed out to Dr. Larkin - Lab Data Result diagrams: 01/06/24 15:15 01/06/24 15:15 Lab Results 01/06/24 01/06/24 01/06/24 Range/Units 15:12 15:15 15:15 WBC 6.1 (3.8-10.6) k/uL RBC 4.55 (3.80-5.40) m/uL Hgb 13.4 (11.4-16.0) gm/dL Hct 39.8 (34.0-46.0) % MCV 87.5 (80.0-100.0) fL MCH 29.5 (25.0-35.0) pg MCHC 33.7 (31.0-37.0) g/dL RDW 12.9 (11.5-15.5) % Plt Count 241 (150-450) k/uL MPV 7.7 Neutrophils % 64 % Lymphocytes % 26 % Monocytes % 5 % Eosinophils % 2 % Basophils % 1 % Neutrophils # 4.0 (1.3-7.7) k/uL Lymphocytes # 1.6 (1.0-4.8) k/uL Monocytes # 0.3 (0-1.0) k/uL Eosinophils # 0.1 (0-0.7) k/uL Basophils # 0.0 (0-0.2) k/uL Sodium 141 (137-145) mmol/L Potassium 3.0 L (3.5-5.1) mmol/L Chloride 107 (98-107) mmol/L Carbon Dioxide 23 (22-30) mmol/L Anion Gap 11 mmol/L BUN 19 H (7-17) mg/dL Creatinine 0.54 (0.52-1.04) mg/dL Est GFR (CKD-EPI)AfAm >90 (>60 ml/min/1.73 sqM) Est GFR (CKD-EPI)NonAf >90 (>60 ml/min/1.73 sqM) Glucose 87 (74-99) mg/dL POC Glucose (mg/dL) 95 (70-110) mg/dL POC Glu Team Leader Surgery ID [place] Calcium 9.1 (8.4-10.2) mg/dL Magnesium 2.2 (1.6-2.3) mg/dL Total Bilirubin 0.7 (0.2-1.3) mg/dL AST 27 (14-36) U/L ALT 14 (4-34) U/L Alkaline Phosphatase 67 (38-126) U/L Total Protein 7.0 (6.3-8.2) g/dL Albumin 4.4 (3.5-5.0) g/dL Lipase 58 (23-300) U/L Urine Color Urine Appearance (Clear) Urine pH (5.0-8.0) Ur Specific [place] (1.001-1.035) Urine Protein (Negative) Urine Glucose (UA) (Negative) Urine Ketones (Negative) Urine Blood (Negative) Urine Nitrite (Negative) Urine Bilirubin (Negative) Urine Urobilinogen (<2.0) mg/dL Ur Leukocyte Esterase (Negative) Urine RBC (0-5) /hpf Urine WBC (0-5) /hpf Ur Squamous Epith Cells (0-4) /hpf Amorphous Sediment (None) /hpf Hyaline Casts (0-2) /lpf Urine Mucus (None) /hpf Urine Opiates Screen (NotDetected) Ur Oxycodone Screen (NotDetected) Urine Methadone Screen (NotDetected) Ur Barbiturates Screen (NotDetected) U Tricyclic Antidepress (NotDetected) Ur Phencyclidine Scrn (NotDetected) Ur Amphetamines Screen (NotDetected) U Methamphetamines Scrn (NotDetected) U Benzodiazepines Scrn (NotDetected) Urine Cocaine Screen (NotDetected) U Marijuana (THC) Screen (NotDetected) Serum Alcohol 46 mg/dL 01/06/24 Range/Units 16:22 WBC (3.8-10.6) k/uL RBC (3.80-5.40) m/uL Hgb (11.4-16.0) gm/dL Hct (34.0-46.0) % MCV (80.0-100.0) fL MCH (25.0-35.0) pg MCHC (31.0-37.0) g/dL RDW (11.5-15.5) % Plt Count (150-450) k/uL MPV Neutrophils % % Lymphocytes % % Monocytes % % Eosinophils % % Basophils % % Neutrophils # (1.3-7.7) k/uL Lymphocytes # (1.0-4.8) k/uL Monocytes # (0-1.0) k/uL Eosinophils # (0-0.7) k/uL Basophils # (0-0.2) k/uL Sodium (137-145) mmol/L Potassium (3.5-5.1) mmol/L Chloride (98-107) mmol/L Carbon Dioxide (22-30) mmol/L Anion Gap mmol/L BUN (7-17) mg/dL Creatinine (0.52-1.04) mg/dL Est GFR (CKD-EPI)AfAm (>60 ml/min/1.73 sqM) Est GFR (CKD-EPI)NonAf (>60 ml/min/1.73 sqM) Glucose (74-99) mg/dL POC Glucose (mg/dL) (70-110) mg/dL POC Glu Team Leader Surgery ID Calcium (8.4-10.2) mg/dL Magnesium (1.6-2.3) mg/dL Total Bilirubin (0.2-1.3) mg/dL AST (14-36) U/L ALT (4-34) U/L Alkaline Phosphatase (38-126) U/L Total Protein (6.3-8.2) g/dL Albumin (3.5-5.0) g/dL Lipase (23-300) U/L Urine Color Yellow Urine Appearance Cloudy H (Clear) Urine pH 5.5 (5.0-8.0) Ur Specific [place] 1.031 (1.001-1.035) Urine Protein 1+ H (Negative) Urine Glucose (UA) Negative (Negative) Urine Ketones Negative (Negative) Urine Blood Negative (Negative) Urine Nitrite Negative (Negative) Urine Bilirubin Negative (Negative) Urine Urobilinogen <2.0 (<2.0) mg/dL Ur Leukocyte Esterase Negative (Negative) Urine RBC 3 (0-5) /hpf Urine WBC 2 (0-5) /hpf Ur Squamous Epith Cells 4 (0-4) /hpf Amorphous Sediment Rare H (None) /hpf Hyaline Casts 9 H (0-2) /lpf Urine Mucus Moderate H (None) /hpf Urine Opiates Screen Detected H (NotDetected) Ur Oxycodone Screen Not Detected (NotDetected) Urine Methadone Screen Not Detected (NotDetected) Ur Barbiturates Screen Not Detected (NotDetected) U Tricyclic Antidepress Not Detected (NotDetected) Ur Phencyclidine Scrn Not Detected (NotDetected) Ur Amphetamines Screen Detected H (NotDetected) U Methamphetamines Scrn Detected H (NotDetected) U Benzodiazepines Scrn Not Detected (NotDetected) Urine Cocaine Screen Detected H (NotDetected) U Marijuana (THC) Screen Detected H (NotDetected) Serum Alcohol mg/dL Disposition Disposition: ADMITTED IP TO THIS HOSP Condition: Stable
[2024-01-06 15:15] LABS: Glucose,Whole Blood 95 mg/dL (70-110)
[2024-01-06 15:27] LABS: Basophils % (A) 1 %; Eosinophils # (A) 0.1 k/uL (0-0.7); Eosinophils % (A) 2 %; HCT 39.8 % (34.0-46.0); HGB 13.4 gm/dL (11.4-16.0); Lymphocytes # (A) 1.6 k/uL (1.0-4.8); Lymphocytes % (A) 26 %; MCH 29.5 pg (25.0-35.0); MCHC 33.7 g/dL (31.0-37.0); MCV 87.5 fL (80.0-100.0); Mean Platelet Volume 7.7; Monocytes # (A) 0.3 k/uL (0-1.0); Monocytes % (A) 5 %; Neutrophils % (A) 64 %; Platelet Count 241 k/uL (150-450); RBC 4.55 m/uL (3.80-5.40); RDW 12.9 % (11.5-15.5); WBC 6.1 k/uL (3.8-10.6)
[2024-01-06] MEDS: SODIUM CHLORIDE 0.9% 500 ML 500 ML IV ONE (15:32)
[2024-01-06 15:33] LABS: ALT 14 U/L (4-34); AST 27 U/L (14-36); African American GFR (CKD) >90 (>60 ml/min/1.73 sqM); Albumin 4.4 g/dL (3.5-5.0); Alcohol 46 mg/dL; Alkaline Phosphatase 67 U/L (38-126); Anion Gap 11 mmol/L; Blood Urea Nitrogen 19 mg/dL (7-17); Calcium 9.1 mg/dL (8.4-10.2); Carbon Dioxide 23 mmol/L (22-30); Chloride 107 mmol/L (98-107); Glucose 87 mg/dL (74-99); Magnesium 2.2 mg/dL (1.6-2.3); Non-African American GFR(CKD) >90 (>60 ml/min/1.73 sqM); Sodium 141 mmol/L (137-145); Total Bilirubin 0.7 mg/dL (0.2-1.3)
[2024-01-06] MEDS: SODIUM CHLORIDE 0.9% 1,000 ML IV ONE (15:34)
[2024-01-06 15:55] LABS: Lipase 58 U/L (23-300)
--- NOTE | 2024-01-06 16:37 | CT ---
EXAMINATION TYPE: CT brain wo con CT DLP: 2065.6 mGycm, Automated exposure control for dose reduction was used. DATE OF EXAM: 01/06/2024 4:06 PM COMPARISON: None. CLINICAL INDICATION:Female, 43 years old with history of AMS, AMS, ETOH, possible drugs. TECHNIQUE: Brain: Axial CT images of the brain were obtained with coronal and sagittal reformats created and rev iewed. Contrast used: None. Oral contrast used: None. FINDINGS: Brain: Extra-axial spaces: No abnormal extra-axial fluid collections. Ventricular system: Within normal limits Cerebral parenchyma: No acute intraparenchymal hemorrhage or mass effect. The sher-white junction is well differentiated. Cerebellum: Unremarkable. Mass effect: No evidence of midline shift. Intracranial vasculature: unremarkable Soft tissues: Normal. Scalp calcified granulomas Calvarium/osseous structures: No depressed skull fracture. Paranasal sinuses and mastoid air cells: Mild scattered paranasal sinus disease. Visualized orbits: Orbital contents are intact. IMPRESSION: No acute intracranial process.
[2024-01-06] MEDS ORDERED: NALOXONE 0.4 MG/ML 1 ML VIAL IV PRN (16:50)
[2024-01-06 16:59] LABS: Amorphous Sediment,Urine Rare /hpf; Appearance,Urine Cloudy (Clear); Bilirubin,Urine Negative (Negative); Blood,Urine Negative (Negative); Color,Urine Yellow; Glucose,Urine (UA) Negative (Negative); Hyaline Casts,Urine 9 /lpf (0-2); Ketones,Urine Negative (Negative); Leukocyte Esterase,Urine Negative (Negative); Mucus,Urine Moderate /hpf; Nitrite,Urine Negative (Negative); PH, Urine 5.5 (5.0-8.0); Protein,Urine 1+ (Negative); RBC,Urine 3 /hpf (0-5); Specific Gravity,Urine 1.031 (1.001-1.035); Squamous Epithelial Cell,Urine 4 /hpf (0-4); Urobilinogen,Urine <2.0 mg/dL (<2.0); WBC,Urine 2 /hpf (0-5)
[2024-01-06 17:01] LABS: Amphetamine Screen,Urine Detected (NotDetected); Barbiturate Screen,Urine Not Detected (NotDetected); Benzodiazepines Screen,Urine Not Detected (NotDetected); Cocaine Screen,Urine Detected (NotDetected); Methadone Screen, Urine Not Detected (NotDetected); Opiate Screen,Urine Detected (NotDetected); Oxycodone Screen, Urine Not Detected (NotDetected); Phencyclidine Screen,Urine Not Detected (NotDetected); Tricyclic Antidepressant,Urine Not Detected (NotDetected); Urn Cannabinoid Scrn Detected (NotDetected)
[2024-01-06] MEDS ORDERED: LORazepam 0.5 MG TAB PO PRN (17:02)
[2024-01-06] MEDS ORDERED: LORazepam 1 MG TAB PO PRN (17:02)
[2024-01-06] MEDS ORDERED: LORazepam 2 MG/ML INJ IV PRN ×3 (17:02)
--- NOTE | 2024-01-06 17:03 | P.HPIM ---
History of Present Illness H&P Date: 01/06/24 History of Presenting Illness: Patient is a 43-year-old female with a past medical history of alcoholism, polysubstance abuse with cocaine/heroin/methamphetamines/marijuana, hepatitis C, fibromyalgia, anxiety with depression and panic disorder, bipolar disorder, and nicotine dependence. Presented to the hospital via EMS with a chief complaint of alcohol abuse and substance abuse. Patient reported last drink of alcohol being yesterday and admits to drug use but would not give details. Upon arrival to our facility, patient underwent evaluation in the emergency department. Vital signs upon arrival show blood pressure 125/88, heart rate 87, respiratory rate 22, temp 97.8 F, and SpO2 of 100% on room air. CT brain was completed negative for acute intracranial process. Labs were completed and reviewed. CBC was unremarkable. BMP showing hypokalemia with potassium of 3.0 and mild prerenal azotemia with BUN of 19. Blood glucose was 87. Magnesium 2.2. Liver profile unremarkable. Lipase 58. Urinalysis positive for protein negative for blood or infection. Urine drug screen positive for opiates, amphetamines, methamphetamines, cocaine, and marijuana. Serum blood alcohol level was 46. Patient was admitted under our services at this time. Patient seen and fully evaluated in room 24 of the emergency department, at time of assessment patient continuously turning away from provider and refused to answer any questions. Review of systems: Limited ROS secondary to patient being uncooperative and refusing to answer questions during examination. Physical exam: Vital signs reviewed and stable. General: Nontoxic, no distress and appears stated age. Dishevelled appearance. Derm: Skin warm and dry, normal coloration for ethnicity. Head: Atraumatic, normocephalic and symmetric. Eyes: No lid lag, and anicteric sclera. Unable to properly assess pupils or EOMs secondary to patient holding eyes closed tightly when attempting to evaluate. Mouth: no lip lesions, mucus membranes moist Cardiovascular: regular rate and rhythm with normal S1S2, no murmur, positive posterior tibial pulses bilaterally, and cap refill < 2 seconds. Lungs: Respirations even, regular, and unlabored on room air. Lungs CTA bilaterally, no rhonchi, no rales, no wheezing, and no accessory muscle usage. Abdominal: soft, nontender to palpation, no guarding, no appreciable organomegaly Ext: ROM intact. No gross muscle atrophy, no edema, no contractures Neuro: Speech clear when speaking, but for majority of assessment was uncooperative and refused to answer questions. Face symmetrical. Patient moving extremities independently and appears symmetrical. Psych: Patient uncooperative, turning away from provider during assessment/exam and refusing to answer questions. Assessment and Plan of Care: Polysubstance abuse with heroin, cocaine, methamphetamines, and marijuana Alcohol withdraw in active alcoholic Bipolar disorder Anxiety with depression Nicotine dependence -Order placed for monitoring of CIWA scores and patient to be medicated with Ativan 0.5 mg every 4 hours as needed for CIWA score of 4-5, Ativan 1 mg every 4 hours for CIWA score of 6-7, Ativan 2 mg every 3 hours CIWA score of 8-9, and Ativan 2 mg every 2 hours forr CIWA score of 10 or greater. -Continuous IV hydration. -Thiamine 100 mg daily, and Multivitamin daily, and Folate 1 mg daily -Seizure, fall, aspiration, and elopement precautions in place. -Urine drug screen positive for opiates, amphetamines, methamphetamines, cocaine, and marijuana. Serum blood alcohol level was 46. -Order placed for urine hCG -Continued close monitoring of electrolytes and replace as needed. -Telemetry monitoring. Data and imaging reviewed: As stated above in HPI CODE STATUS: Full code DVT prophylaxis: Heparin Anticipated discharge date: Pending clinical course Anticipated discharge place: Home Patient was seen independently by Nurse Practitioner. This document was prepared using [employer] dictation software. Please allow for errors in security compliance specialist while rare they do occur. Dallas Hernandez NP rendered care for this patient independently, reviewed the findings and plan as documented in the note above. I did not physically speak with or examine the patient on this date. Past Medical History Past Medical History: Fibromyalgia Additional Past Medical History / Comment(s): endometriosis, IBS, positive hepatitis C, reports a right Ovarian Cyst History of Any Multi-Drug Resistant Organisms: None Reported Additional Past Surgical History / Comment(s): laprascopy Past Psychological History: Anxiety, Bipolar, Depression, Panic Disorder Smoking Status: Current every day smoker, Vaper Past Alcohol Use History: Heavy Past Drug Use History: Cocaine, Heroin, Marijuana, Methamphetamine Medications and Allergies Home Medications Medication Instructions Recorded Confirmed Type No Known Home Medications 01/07/24 01/07/24 History Allergies Allergy/AdvReac Type Severity Reaction Status Date / Time morphine Allergy Itching, Verified 01/07/24 10:17 RASH/HIVES Physical Exam Vitals: Vital Signs Temp Pulse Resp BP Pulse Ox 01/06/24 16:03 78 18 104/74 94 L 01/06/24 15:16 75 19 97/62 94 L 01/06/24 14:16 97.8 F 87 22 125/88 100 Intake and Output 01/06/24 01/06/24 01/06/24 06:59 14:59 22:59 Other: Weight 77.111 kg Results CBC & Chem 7: 01/06/24 15:15 01/06/24 15:15 Labs: Abnormal Lab Results - Last 24 Hours (Table) 01/06/24 01/06/24 Range/Units 15:15 16:22 Potassium 3.0 L (3.5-5.1) mmol/L BUN 19 H (7-17) mg/dL Urine Appearance Cloudy H (Clear) Urine Protein 1+ H (Negative) Amorphous Sediment Rare H (None) /hpf Hyaline Casts 9 H (0-2) /lpf Urine Mucus Moderate H (None) /hpf Urine Opiates Screen Detected H (NotDetected) Ur Amphetamines Screen Detected H (NotDetected) U Methamphetamines Scrn Detected H (NotDetected) Urine Cocaine Screen Detected H (NotDetected) U Marijuana (THC) Screen Detected H (NotDetected)
[2024-01-06] MEDS: NICOTINE 21MG/24HR PATCH TRANSDERM SCH (18:55)
[2024-01-06] MEDS: POTASSIUM CHLORIDE 10 MEQ in WATER FOR INJECTION 1 100ML.BAG IVPB SCH (18:57)
[2024-01-06] MEDS: SODIUM CHLORIDE 0.9% 1,000 ML IV SCH (18:59)
[2024-01-06] MEDS: THIAMINE 100 MG/ML 2 ML VIAL IM STA (19:00)
[2024-01-06] MEDS: HEPARIN SODIUM,PORCINE 5,000 UNIT/ML 1 ML VIAL SQ SCH (22:34)
[2024-01-07 07:53] VITALS: BP 108/70; PULSE 81; RESP 15; TEMP 97.9
[2024-01-07] MEDS: THIAMINE 100 MG TAB PO SCH (08:14)
[2024-01-07] MEDS: ACETAMINOPHEN TAB 325 MG TAB PO PRN (08:40)
--- NOTE | 2024-01-07 10:49 | P.DS ---
Providers Date of admission: 01/06/24 16:50 Attending physician: Flynn Dong MD Primary care physician: Stated None Hospital Course: Discharge Diagnosis: Polysubstance abuse with heroin, cocaine, methamphetamines, and marijuana Alcohol withdraw in active alcoholic Bipolar disorder Anxiety with depression Nicotine dependence Hospital Course: Patient is a 43-year-old female with a past medical history of alcoholism, polysubstance abuse with cocaine/heroin/methamphetamines/marijuana, hepatitis C, fibromyalgia, anxiety with depression and panic disorder, bipolar disorder, and nicotine dependence. Presented to the hospital via EMS with a chief complaint of alcohol abuse and substance abuse. Patient reported last drink of alcohol being yesterday and admits to drug use but would not give details. Upon arrival to our facility, patient underwent evaluation in the emergency department. Vital signs upon arrival show blood pressure 125/88, heart rate 87, respiratory rate 22, temp 97.8 F, and SpO2 of 100% on room air. CT brain was completed negative for acute intracranial process. Labs were completed and reviewed. CBC was unremarkable. BMP showing hypokalemia with potassium of 3.0 and mild prerenal azotemia with BUN of 19. Blood glucose was 87. Magnesium 2.2. Liver profile unremarkable. Lipase 58. Urinalysis positive for protein negative for blood or infection. Urine drug screen positive for opiates, amphetamines, methamphetamines, cocaine, and marijuana. Serum blood alcohol level was 46. Patient was admitted under our services at this time. Patient monitored overnight and received IV fluid hydration. This morning patient is alert and oriented to person, place, time, and situation. She is cooperative with examination. She reports recently being on a rahman/road trip and admits to cocaine, methamphetamine, and heroin use along with alcohol use. Patient has friends/family member at bedside and states she is ready to be discharged. Patient medically cleared for discharge at this time and highly encouraged to refrain from any and all alcohol and drug use. Patient was provided with outpatient resources available to her including counseling, AA meetings, and inpatient drug and alcohol rehabilitation facilities. Physical exam: Vital signs reviewed and stable. General: Nontoxic, no distress and appears stated age. Dishevelled appearance. Derm: Skin warm and dry, normal coloration for ethnicity. Head: Atraumatic, normocephalic and symmetric. Eyes: No lid lag, and anicteric sclera. Mouth: no lip lesions, mucus membranes moist Cardiovascular: regular rate and rhythm with normal S1S2, no murmur, positive posterior tibial pulses bilaterally, and cap refill < 2 seconds. Lungs: Respirations even, regular, and unlabored on room air. Lungs CTA bilaterally, no rhonchi, no rales, no wheezing, and no accessory muscle usage. Abdominal: soft, nontender to palpation, no guarding, no appreciable organomegaly Ext: ROM intact. No gross muscle atrophy, no edema, no contractures Neuro/Psych: Patient alert and oriented to person, place, time, and situation. GCS 15. No neurological deficits noted. Patient is pleasant and cooperative this morning. A total of 32 minutes of time were spent preparing this complex discharge summary. Pt was discharged on 01/07/2024 at 10:45 AM. Patient was seen independently by Nurse Practitioner. This document was prepared using [employer], a division of [employer] dictation software. Please allow for errors in merchandise stocker while rare they do occur. Dallas Hernandez NP rendered care for this patient independently, reviewed the findings and plan as documented in the note above. I did not physically speak with or examine the patient on this date. Patient Condition at Discharge: Stable Plan - Discharge Summary New Discharge Prescriptions: No Action No Known Home Medications Discharge Medication List No Known Home Medications 01/07/24 [History] Follow up Appointment(s)/Referral(s): Ralph Ho III, MD [STAFF PHYSICIAN] - 1-2 Days (Please call and schedule outpatient appointment to establish care with PCP.) Patient Instructions/Handouts: Cocaine Abuse (DC), Abuse of Alcohol (DC), Methamphetamine Abuse (DC), Polysubstance Abuse (ED) Activity/Diet/Wound Care/Special Instructions: Activity: As tolerated. Take breaks as needed. Diet: Heart healthy and carb consistent diet. Avoid salts, or foods with hidden salts such as canned or boxed foods and frozen dinners. Extra salt makes your heart w ork harder and traps the fluid in your body for longer. Special Instructions: Recommend avoidance of any and all alcohol and drug use. Thank you for allowing us to participate in your care, it was truly a pleasure having you for our patient!!! . Discharge/Stand Alone Forms: [facility], [facility], Community Resources, Outpatient Counseling, In Substance Abuse Facilities, Personal [employer] Collector Discharge Disposition: HOME SELF-CARE
== END 2024-01-07 10:58 | disposition home or self-care (01) ==
LOC: EC 14:15 → 6NMEDSUR 16:50
PROVIDERS: ADMIT Student in an Organized Health Care Education/Training Program; ATTEND Student in an Organized Health Care Education/Training Program
DX: F10.239 Alcohol dependence with withdrawal, unspecified (principal); F11.90 Opioid use, unspecified, uncomplicated; E87.6 Hypokalemia; F31.9 Bipolar disorder, unspecified; F41.8 Other specified anxiety disorders; F17.210 Nicotine dependence, cigarettes, uncomplicated
CPT/HCPCS: 96376; 96361 ×2; 96365; 96366; 96372; 99285; 36415; 80053; 83690; 83735; 85025; 81001; 80306; 70450; G0378 ×2; G0480; S4990 ×2; J3411; J3480; 80320

== ENCOUNTER 2024-02-21 23:35 | Inpatient (IN) | payer MEDICAID, OTHER ==
[2024-02-27] MEDS ORDERED: MAGNESIUM HYDROXIDE 2,400 MG/30 ML CUP PO PRN (00:17)
[2024-02-27] MEDS ORDERED: MAG HYDROX/AL HYDROX/SIMETH 30 ML CUP PO PRN (00:18)
[2024-02-27] MEDS ORDERED: LORazepam 1 MG TAB PO PRN ×3 (00:18→10:33)
[2024-02-27] MEDS ORDERED: LORazepam 2 MG/ML INJ IM PRN (00:20)
[2024-02-27] MEDS ORDERED: LORazepam 1 MG TAB ONE ×2 (05:11→20:40)
[2024-02-27] MEDS ORDERED: ACETAMINOPHEN TAB 325 MG TAB ONE ×2 (05:11→20:39)
[2024-02-27] MEDS: ACETAMINOPHEN TAB 325 MG TAB PO PRN (05:12)
[2024-02-27] MEDS: LORazepam 1 MG TAB PO PRN ×2 (05:13→12:06)
[2024-02-27] MEDS ORDERED: MULTIVITAMINS, THERA 1 EACH TAB ONE (08:29)
[2024-02-27] MEDS ORDERED: NICOTINE 14MG/24HR PATCH TRANSDERM ONE (08:29)
[2024-02-27] MEDS ORDERED: THIAMINE 100 MG TAB ONE ×2 (08:29→20:22)
--- NOTE | 2024-02-27 09:47 | P.PN ---
Progress Note - Text Progress Note Date: 02/27/24 Patient was seen and chart was reviewed and case discussed with nursing staff Patient reports that she is feeling tired and fatigued She says that as far as taking any medications she will think about it She also stated that she was planning to sign a 5-day notice She admits that she had some issues with depression and using drugs She currently denies any suicidal ideations or plans Mental status examination: Mental Status Exam: Grossly unchanged from yesterday. General Appearance: Patient appears to be stated age is somewhat somnolent, directable, and cooperative. Behavior: Patient is lying down in bed without any agitated behavior. Poor eye contact. Speech: Patient's speech is fluent and nonpressured. Responses were superficial and gives flippant answers Mood/Affect: Mood is "doing okay," affect is congruent and flat. Suicidality/Homicidality: Patient denies any suicidal or homicidal ideation. Perceptions: Patient denies any visual hallucinations and denies any auditory hallucinations Though content/process: There is no evidence of any delusional thought content and thought process is linear and goal-directed. 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 Patient has signed adult voluntary form. -Medications: Continue lorazepam and will also add Zyprexa 5 mg twice daily/prn Will encourage the patient to take the medications and will be offered Discussed effects and side effects -When necessary Vistaril for agitation/aggression. -NRT - nicotine patch -SW on board for discharge planning. Encouraged the patient to participate in milieu. Active Medications Generic Name Dose Route Start Last Admin Trade Name Freq PRN Reason Stop Dose Admin Acetaminophen 650 mg 02/27/24 00:18 02/27/24 05:12 Acetaminophen Tab 325 Mg Tab PO 650 mg Q4H PRN Administration PAIN/DISCOMFORT Al Hydroxide/Mg Hydroxide 30 ml 02/27/24 00:18 Mag Hydrox/Al Hydrox/Simeth 30 Ml Cup PO Q4H PRN GI UPSET Diphenhydramine HCl 25 mg 02/27/24 00:21 Diphenhydramine 25 Mg Cap PO HS PRN Insomnia Folic Acid 1 mg 02/27/24 12:00 Folic Acid 1 Mg Tab PO DAILY@1200 [facility]NEY Lorazepam 1 mg 02/27/24 00:18 Lorazepam 1 Mg Tab PO Q4H PRN CIWA LESS THAN 9 Lorazepam 2 mg 02/27/24 00:19 02/27/24 05:13 Lorazepam 1 Mg Tab PO 2 mg Q4H PRN Administration CIWA 9 OR GREATER Lorazepam 2 mg 02/27/24 00:20 Lorazepam 1 Mg Tab PO Q4H PRN ANXIETY/AGITATION Lorazepam 2 mg 02/27/24 00:20 Lorazepam 2 Mg/Ml Inj IM Q4H PRN ANXIETY/AGITATION Magnesium Hydroxide 2,400 mg 02/27/24 00:17 Magnesium Hydroxide 2,400 Mg/30 Ml Cup PO DAILY PRN CONSTIPATION Multivitamins 1 each 02/27/24 09:00 Multivitamins, Thera 1 Each Tab PO DAILY [facility] Nicotine 1 patch 02/27/24 09:00 Nicotine 14mg/24hr Patch TRANSDERM DAILY [facility] Prazosin HCl 1 mg 02/27/24 21:00 Prazosin 1 Mg Cap PO HS [facility] Thiamine HCl 100 mg 02/27/24 09:00 Thiamine 100 Mg Tab PO BID [facility]NEY
[2024-02-27] MEDS: MULTIVITAMINS, THERA 1 EACH TAB PO SCH (10:21)
[2024-02-27] MEDS: THIAMINE 100 MG TAB PO SCH (10:21)
[2024-02-27] MEDS: NICOTINE 14MG/24HR PATCH TRANSDERM SCH (10:21)
[2024-02-27] MEDS: FOLIC ACID 1 MG TAB PO SCH (12:04)
--- NOTE | 2024-02-27 15:30 | P.CONS ---
History of Present Illness - History of Present Illness This is a pleasant 43 years old female who was admitted to the mental health unit with a diagnosis of mood disorder secondary to substance abuse including methamphetamine, cannabis and opioids. Patient walking in hallway with no problem Patient complains from pain all over her body with no specification which looks mild. I offered to give her Tylenol and she agrees. No loss of function noted with the patient history and exam Patient denies specific symptom, please refer to review of system Vital stable No labs Patient states she smokes 1 pack/day and she was counseled to quit and she agrees She drinks 1 pint of alcohol every day and she was counseled to quit and she agrees She uses marijuana Review of Systems Review of systems CONSTITUTIONAL: No fever, no malaise, no fatigue. HEENT: No recent visual problems or hearing problems. Denied any sore throat. CARDIOVASCULAR: No orthopnea, PND, no palpitations, no syncope. PULMONARY: No shortness of breath, no cough, no hemoptysis. GASTROINTESTINAL: No diarrhea, no nausea, no vomiting, no abdominal pain. Normoactive bowel sounds. NEUROLOGICAL: No headaches, no weakness, no numbness. HEMATOLOGICAL: Denies any bleeding or petechiae. GENITOURINARY: Denies any burning micturition, frequency, or urgency. MUSCULOSKELETAL/RHEUMATOLOGICAL: Denies any joint pain, swelling, or any muscle pain. ENDOCRINE: Denies any polyuria or polydipsia. Past Medical History Past Medical History: Fibromyalgia Additional Past Medical History / Comment(s): endometriosis, IBS, positive hepatitis C, reports a right Ovarian Cyst History of Any Multi-Drug Resistant Organisms: None Reported Additional Past Surgical History / Comment(s): laprascopy Past Psychological History: Anxiety, Bipolar, Depression, Panic Disorder Smoking Status: Current every day smoker, Vaper Past Alcohol Use History: Heavy Past Drug Use History: Cocaine, Heroin, Marijuana, Methamphetamine Medications and Allergies Home Medications Medication Instructions Recorded Confirmed Type No Known Home Medications 01/07/24 01/07/24 History Allergies Allergy/AdvReac Type Severity Reaction Status Date / Time morphine Allergy Itching, Verified 01/07/24 10:17 RASH/HIVES Physical Exam Vitals: Vital Signs Pulse BP 02/27/24 05:16 74 118/85 Intake and Output 02/27/24 02/27/24 02/27/24 06:59 14:59 22:59 Other: Weight 84.907 kg GENERAL: The patient is alert and oriented x3, not in any acute distress. Well developed, well nourished. HEENT: Pupils are round and equally reacting to light. EOMI. No scleral icterus. No conjunctival pallor. Normocephalic, atraumatic. No pharyngeal erythema. No thyromegaly. CARDIOVASCULAR: S1 and S2 present. No murmurs, rubs, or gallops. PULMONARY: Chest is clear to auscultation, no wheezing , no crackles. ABDOMEN: Soft, nontender, nondistended, normoactive bowel sounds. No palpable organomegaly. MUSCULOSKELETAL: No joint swelling or deformity. EXTREMITIES: No cyanosis, clubbing, or pedal edema. NEUROLOGICAL: Gross neurological examination did not reveal any focal deficits. SKIN: No rashes. no petechiae. 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
[2024-02-27] MEDS: PRAZOSIN 1 MG CAP PO SCH (20:38)
[2024-02-27] MEDS ORDERED: diphenhydrAMINE 25 MG CAP ONE (20:39)
[2024-02-27] MEDS: diphenhydrAMINE 25 MG CAP PO PRN (20:41)
[2024-02-28] MEDS ORDERED: ACETAMINOPHEN TAB 325 MG TAB ONE (06:52)
[2024-02-28] MEDS ORDERED: NICOTINE 14MG/24HR PATCH TRANSDERM ONE (07:59)
[2024-02-28] MEDS ORDERED: MULTIVITAMINS, THERA 1 EACH TAB ONE (07:59)
[2024-02-28] MEDS ORDERED: THIAMINE 100 MG TAB ONE (08:00)
[2024-02-28] MEDS ORDERED: OLANZapine 5 MG TAB ONE (08:00)
[2024-02-28] MEDS: OLANZapine 5 MG TAB PO SCH (09:37)
[2024-02-28] MEDS ORDERED: LORazepam 1 MG TAB ONE (09:38)
--- NOTE | 2024-02-28 12:43 | P.PN ---
Progress Note - Text Progress Note Date: 02/28/24 Interval History: Patient was seen in her room and was directable and agreeable to speak with wr iter in the office. She states that she is trying to be cooperative, and patient until she can be released from the hospital. She did sign an AMA, and this contract writer explained the process to her. Patient verbalized understanding. She claims her mood is fine, and states she is not sleeping well at night, due to it being a strange place. She states that she has low energy. She is denying any withdraw symptoms from alcohol. Residency Coordinator spoke to patient about going to rehab, patient declined. At this time patient denies any suicidal or homicidal ideations, intent or plan. Patient denies any auditory, visual hallucinations and denies any paranoia or delusions. Patient denies any side effects from the medications and has been compliant with meds. Mental Status Exam: General Appearance: [Patient appears to be older than stated age is alert, directable, and cooperative. Mildly disheveled, poor grooming and hygiene. Dressed casually.] Behavior: [Patient is calmly seated without any agitated behavior. Appears tired.] Speech: Patient's speech is fluent and nonpressured. Mood/Affect: Mood is "fine", affect is congruent and constricted. Suicidality/Homicidality: Patient denies having any suicidal or homicidal ideation intent or plan. Perceptions: Patient denies any visual hallucinations [and denies any auditory hallucinations] Though content/process: [There is no evidence of any delusional thought content and thought process focused on discharge. [place] Memory and concentration: AOX3, grossly intact for the purposes of this session Judgment and insight: poor, Improving mildly Assessment major depressive disorder, without psychotic features methamphetamine abuse opiate abuse cocaine abuse hx of PTSD cannabis use disorder nicotine dependance Plan: -Patient continues to meet criteria for inpatient psychiatric admission for symptom stabilization and safety. Patient is currently voluntary, however, she signed an AMA, which is up on 03/01 -Medications: change to Zyprexa 2.5 mg qhs mood stabilization/insomnia, minipress 1mg qhs for nightmares , zoloft 50mg qhs for mood/anxiety -When necessary Ativan and Haldol for agitation/aggression. -NRT - nicotine patch -SW on board for discharge planning. Encouraged the patient to participate in milieu. Declining rehab, signed ama, which is up 03/01.
[2024-02-28] MEDS: LORazepam 2 MG/ML INJ IM PRN (17:06)
[2024-02-28] MEDS: SERTRALINE 50 MG TAB PO SCH (20:50)
[2024-02-28] MEDS: OLANZapine 2.5 MG TAB PO SCH (20:50)
[2024-02-28] MEDS ORDERED: OLANZapine 5 MG TAB PO SCH (21:00)
[2024-02-29 07:07] VITALS: RESP 16; TEMP 97.9
--- NOTE | 2024-02-29 11:16 | P.PN ---
Progress Note - Text Progress Note Date: 02/29/24 Interval History: Patient was seen in the [place], and was directable and agreeable to speak with masood stuart in the office. She states that she is doing very well today. She is more alert today, and brighter. Her energy level is better today, and she does not seem as sedated. She states that she is excited to be back in to the recovery scene again, but is still refusing rehab. Patient is minimizing her drug use. Timing Machine Operator spoke to the patient at length about the importance of sobriety. Patient is going to groups, she is endorsing good sleep, and a good appetite. Patient denying any withdraw symptoms. At this time patient denies any suicidal or homicidal ideations, intent or plan. Patient denies any auditory, visual hallucinations and denies any paranoia or delusions. Patient denies any side effects from the medications and has been compliant with meds. Mental Status Exam: General Appearance:Patient appears to be older than stated age is alert, directable, and cooperative. Improving grooming and hygiene Dressed casually.] Behavior: Patient is calmly seated without any agitated behavior. Manipulating. Speech: Patient's speech is fluent and nonpressured. Mood/Affect: Mood is "improving", affect is congruent and constricted. Suicidality/Homicidality: Patient denies having any suicidal or homicidal ideation intent or plan. Perceptions: Patient denies any visual hallucinations and denies any auditory hallucinations Though content/process: There is no evidence of any delusional thought content and thought process focused on discharge. [place], minimizing drug use, improving mildly Memory and concentration: AOX3, grossly intact for the purposes of this session Judgment and insight: superficial, Improving mildly Assessment major depressive disorder, without psychotic features methamphetamine abuse opiate abuse cocaine abuse hx of PTSD cannabis use disorder nicotine dependance Plan: -Patient continues to meet criteria for inpatient psychiatric admission for symptom stabilization and safety. Patient is currently voluntary, however, she signed an AMA, which is up on 03/01 -Medications: increase Zyprexa 5mg qhs mood stabilization/insomnia, minipress 1mg qhs for nightmares , zoloft 50mg qhs for mood/anxiety, discontinue benedryl. -When necessary Ativan and Haldol for agitation/aggression. -NRT - nicotine patch -SW on board for discharge planning. Encouraged the patient to participate in milieu. Declining rehab, signed ama, which is up 03/01. likely discharge tomorrow
[2024-02-29] MEDS: hydrOXYzine pamoate 25 MG CAP PO PRN (11:41)
[2024-02-29] MEDS: OLANZapine 5 MG TAB PO SCH (21:26)
[2024-03-01 06:52] VITALS: BP 135/71; PULSE 98
--- NOTE | 2024-03-01 10:30 | P.DS ---
Providers Date of admission: 02/25/24 23:15 Expected date of discharge: 03/01/24 Attending physician: Bernardo Parrish MD Consults: 02/27/24 09:29 Consult Physician Routine Consulting Provider: Em Mccollum Consult Reason/Comments: H&P medical follow up Do you want consulting provider notified?: Yes Primary care physician: Stated None - Discharge Diagnosis(es) (1) Major depressive disorder without psychotic features Current Visit: Yes Status: Acute Priority: High (2) Methamphetamine abuse Current Visit: Yes Status: Acute Priority: High (3) Opiate abuse, continuous Current Visit: Yes Status: Acute Priority: High (4) Cocaine abuse Current Visit: Yes Status: Acute Priority: High (5) History of posttraumatic stress disorder (PTSD) Current Visit: Yes Status: Acute Priority: Medium (6) Cannabis use disorder Current Visit: Yes Status: Acute Priority: Medium (7) Nicotine dependence Current Visit: Yes Status: Acute Priority: Low (8) Alcohol use disorder Current Visit: Yes Status: Acute Priority: Medium Hospital Course: Admission HPI: Admission note was completed by Dr Oquendo "patient was hospitalized due to severe depression and agitation. The patient reports that she was brought in against her well and that she was suicidal. The patient then stated that everything was going wrong and that she was using several different drugs. She said that she was using methamphetamine, heroin, all of her life. She currently lives with her friends. She said that she actually had a heart attack and that she was hospitalized on the unit. She was unable to give further details due to delusional thinking and flight of ideas. The patient said that she is currently living with her friends help. She says that she is hoping to go home soon. The patient otherwise remains of very poor historian." Hospital course: Upon admission to the unit patient was directable and agreeable to commence treatment and signed adult voluntary form. Shortly after signing voluntary, patient signed AMA. Patient was initially isolative and depressed however with time and treatment she eventually got along well with other patients on the unit and followed unit protocol. Patient was compliant with the medications and denied any side effects throughout hospital course. Patient was started on CIWA protocol with as needed Ativan for alcohol withdrawal. She refused any anticraving medications. She was started on Zyprexa and increase the dose of 5 mg nightly for mood stabilization/insomnia. Minipress 1 mg nightly for nightmares, Zoloft 50 mg nightly for mood/anxiety.. Patient spoke of her stressors and engaged in therapy both group and individual. Patient was also seen by medical team for history and physical exam. Throughout the course of the hospitalization patient gradually improved with regards to mood, anxiety, suicidal thoughts, sleep and returned back to their baseline level of functioning. On the day of discharge patient denied any suicidal or homicidal ideations intent or plan denied any auditory or visual hallucinations. Patient endorsed wanting to live for her health, future and family. The patient denied any access to guns or weapons. Patient denied any paranoia and did not endorse any delusions. Patient does have a significant history of substance abuse and was counseled on abstaining from all substances including alcohol and marijuana. Patient was offered however declined inpatient substance-abuse rehab. Patient elected to do outpatient substance use treatment program through [facility]. Patient was also counseled on the medications and need for regular compliance and was encouraged to follow-up with their outpatient appointment for mental health and also for primary care. Prior to discharge a family meeting will be arranged by social service assistant to answer any questions and ensure safety upon discharge. Mental status exam: General Appearance: Patient appears to be tall, dark hair, stated age is alert, pleasant, and cooperative. Patient is in no acute distress and has improved hygiene and grooming Behavior: Patient is calmly seated without any agitated behavior. Speech: Patient's speech is fluent and nonpressured. Mood/Affect: Patient reports their mood is "good", affect is congruent and euthymic. Suicidality/Homicidality: Patient denies having any suicidal or homicidal ideation intent or plan. Perceptions: Patient denies any auditory or visual hallucinations. Though content/process: There is no evidence of any delusional thought content and thought process is linear and goal-directed. More future oriented Memory and concentration: AOX3, grossly intact for the purposes of this session. Can spell "WORLD" backwards correctly. Judgment and insight: Chronically poor/impulsive, however has improved with guarded prognosis Impression: major depressive disorder, without psychotic features alcohol use disorder methamphetamine abuse opiate abuse cocaine abuse hx of PTSD cannabis use disorder nicotine dependance Plan: -Continue with discharge today as patient has improved and stabilized psychiatrically and is not currently an imminent threat to herself and/or others. Patient will remain at chronically elevated risk for harm to self and/o r others due to her impulsivity and polysubstance abuse. -Continue medications: Zyprexa 5 mg nightly for mood stabilization/insomnia, Minipress 1 mg nightly for nightmares, Zoloft 50 mg nightly for mood/anxiety. -Patient was counseled on the need for medication compliance and appropriate follow-up at mental health and also primary care for medical issues. Patient verbalized understanding and agreed. -Social work to help coordinate patient's discharge today back home. Social work also to arrange for patients follow up appointments with [facility] for psychiatric care along with follow up with primary care provider. -Patient counseled on abstaining from recreational drugs and marijuana and alcohol. Was informed/educated on the adverse effects on their physical and mental health. Patient verbally agreed and understood. Patient was offered substance abuse treatment however declined at this time. -Patient was instructed to return to the hospital or seek immediate medical care if their psychiatric or medical symptoms do worsen or reoccur. Allergies Allergy/AdvReac Type Severity Reaction Status Date / Time morphine Allergy Itching, Verified 01/07/24 10:17 RASH/HIVES Vital Signs Temp 97.9 F 02/29/24 06:40 Pulse 98 03/01/24 06:52 Resp 16 02/29/24 06:40 BP 135/71 03/01/24 06:52 Pulse Ox 95 02/29/24 06:40 FiO2 Patient Condition at Discharge: Stable Plan - Discharge Summary New Discharge Prescriptions: New Nicotine 14Mg/24Hr Patch [Habitrol] 1 patch TRANSDERM DAILY 14 Days #14 patch hydrOXYzine pamoate [Vistaril] 50 mg PO DAILY PRN 30 Days #60 cap PRN Reason: Anxiety Thiamine [Vitamin B-1] 100 mg PO BID tab Folic Acid 1 mg PO DAILY@1200 tab Prazosin [Minipress] 1 mg PO HS 30 Days #30 cap Multivitamins, Thera [Multivitamin (formulary)] 1 each PO DAILY tab Sertraline [Zoloft] 50 mg PO HS 30 Days #30 tab OLANZapine [ZyPREXA] 5 mg PO HS 30 Days #30 tab Discharge Medication List Folic Acid 1 mg PO DAILY@1200 tab 03/01/24 [Rx] Multivitamins, Thera [Multivitamin (formulary)] 1 each PO DAILY tab 03/01/24 [Rx] Nicotine 14Mg/24Hr Patch [Habitrol] 1 patch TRANSDERM DAILY 14 Days #14 patch 03/01/24 [Rx] OLANZapine [ZyPREXA] 5 mg PO HS 30 Days #30 tab 03/01/24 [Rx] Prazosin [Minipress] 1 mg PO HS 30 Days #30 cap 03/01/24 [Rx] Sertraline [Zoloft] 50 mg PO HS 30 Days #30 tab 03/01/24 [Rx] Thiamine [Vitamin B-1] 100 mg PO BID tab 03/01/24 [Rx] hydrOXYzine pamoate [Vistaril] 50 mg PO DAILY PRN 30 Days #60 cap 03/01/24 [Rx] Discharge Disposition: HOME SELF-CARE
--- NOTE | 2024-03-13 08:54 | CT ---
Patient: Renee Mora Ordering Physician: Unknown, Unknown ID: [id number] Phone, Pager: Phone: N/A Pager: N/A : 1980 Age/Gender: 43Y, F Primary Location: N/A Procedure: CT brain wo con Stud y Date: 02/21/2024 8:29:24 PM EXAMINATION TYPE: CT brain wo con CT DLP: 1095 mGycm, Automated exposure control for dose reduction was used. DATE OF EXAM: 02/21/2024 8:49 PM COMPARISON: None. CLINICAL INDICATION: Mental health evaluation TECHNIQUE: Brain: Axial CT images of the brain were obtained with coronal and sagittal reformats created and rev iewed. Contrast used: None. Oral contrast used: None. FINDINGS: Brain: Extra-axial spaces: No abnormal extra-axial fluid collections. Ventricular system: Within normal limits Cerebral parenchyma: No acute intraparenchymal hemorrhage or mass effect. The sher-white junction is well differentiated. Cerebellum: Unremarkable. Mass effect: No evidence of midline shift. Intracranial vasculature: unremarkable Soft tissues: Partially calcified scalp lesions as representing calcified granulomas. Calvarium/osseous structures: No depressed skull fracture. Paranasal sinuses and mastoid air cells: Mild scattered paranasal sinus disease. Visualized orbits: Orbital contents are intact. IMPRESSION: 1. No acute intracranial process. 2. Scalp nodules partially calcified likely representing calcified granulomas/sebaceous cyst.
--- NOTE | 2024-03-17 09:01 | CA ---
Transthoracic Echo Report Name: Renee Cason Age: 43 Gender: F : 1980 Exam Date: 02/22/2024 09:05 Exam Location: [facility] Ht (in): 68 Wt (lb): 160 Ordering Physician: Attending/Referring Phys: Outside Solar Sales Consultant Alea Ortega RDCS Procedure CPT: Indications: Cardiac Hx: Technical Quality: Fair Contrast 1: Total Dose (mL): Contrast 2: Total Dose (mL): MEASUREMENTS (Male / Female) Normal Values 2D ECHO LV Diastolic Diameter PLAX 4.9 cm 4.2 - 5.9 / 3.9 - 5.3 cm LV Systolic Diameter PLAX 3.3 cm IVS Diastolic Thickness 0.9 cm 0.6 - 1.0 / 0.6 - 0.9 cm LVPW Diastolic Thickness 1.0 cm 0.6 - 1.0 / 0.6 - 0.9 cm LV Relative Wall Thickness 0.4 LVOT Diameter 2.5 cm Aortic Root Diameter 3.6 cm LV Diastolic Volume MOD BP 187.4 cm??? 67 - 155 / 56 - 104 cm??? LV Systolic Volume MOD BP 69.0 cm??? 22 - 58 / 19 - 49 cm??? LV Ejection Fraction MOD BP 63.2 % >= 55 % LV Cardiac Index MOD BP 5183.2 cm???/min???m??? LV Diastolic Volume MOD 4C 193.9 cm??? LV Systolic Volume MOD 4C 62.1 cm??? LV Ejection Fraction MOD 4C 68.0 % LV Cardiac Index MOD 4C 5771.5 cm???/min???m??? LV Diastolic Length 4C 10.4 cm LV Systolic Length 4C 8.2 cm LV Diastolic Volume MOD 2C 179.9 cm??? LV Systolic Volume MOD 2C 73.9 cm??? LV Ejection Fraction MOD 2C 58.9 % LV Cardiac Index MOD 2C 4641.8 cm???/min???m??? LV Diastolic Length 2C 10.3 cm LV Systolic Length 2C 8.5 cm Ascending Aorta Diameter 3.5 cm DOPPLER AV Peak Velocity 161.0 cm/s AV Peak Gradient 10.4 mmHg AV Mean Velocity 118.8 cm/s AV Mean Gradient 6.1 mmHg AV Velocity Time Integral 28.5 cm LVOT Peak Velocity 130.7 cm/s LVOT Peak Gradient 6.8 mmHg LVOT Velocity Time Integral 24.3 cm LVOT Stroke Volume 116.4 cm??? LVOT Stroke Volume Index 62.6 ml/m??? LVOT Cardiac Index 5093.5 cm???/min???m??? AV Area Cont Eq vti 4.1 cm??? AV Area Cont Eq pk 3.9 cm??? Mitral E Point Velocity 82.4 cm/s Mitral A Point Velocity 61.2 cm/s Mitral E to A Ratio 1.3 MV Deceleration Time 217.0 ms MV E' Velocity 9.9 cm/s Mitral E to MV E' Ratio 8.3 TR Peak Velocity 244.4 cm/s TR Peak Gradient 23.9 mmHg Right Atrial Pressure 5.0 mmHg Pulmonary Artery Systolic Pressu 28.9 mmHg Right Ventricular Systolic Press 28.9 mmHg PV Peak Velocity 101.6 cm/s PV Peak Gradient 4.1 mmHg FINDINGS Left Ventricle Left ventricular ejection fraction is estimated at 55 to 60 %. Left ventricular cavity size normal. Normal left ventricular systolic function with no obvious regional wall motion abnormalities. Right Ventricle Right ventricular dilatation with normal function. Right ventricular systolic pressure within normal limits. Right Atrium Right atrial dilatation. Left Atrium Left atrial dilatation. Mitral Valve Structurally normal mitral valve. No evidence for mitral valve prolapse. No mitral stenosis. Mild mitral regurgitation. Aortic Valve Trileaflet aortic valve. No aortic stenosis. No aortic regurgitation. Tricuspid Valve Structurally normal tricuspid valve. No tricuspid stenosis. Mild tricuspid regurgitation. Pulmonic Valve Structurally normal pulmonic valve. No pulmonic stenosis. Trace pulmonic regurgitation. Pericardium No pericardial effusion. Aorta Normal size aortic root and proximal ascending aorta. CONCLUSIONS 1. Normal left ventricular size and systolic function 2. Mild mitral and tricuspid regurgitation Previewed by: Dr. Marry Chapin MD (Electronically Signed) Final Date: 22 February 2024 12:41
--- NOTE | 2024-03-22 06:04 | XR ---
Patient: Renee Mora Ordering Physician: Unknown, Unknown ID: [id number] Phone, Pager: Phone: N/A Pager: N/A : 1980 Age/Gender: 43Y, F Primary Location: N/A Procedure: XR chest 2V Study Da te: 02/21/2024 8:36:16 PM EXAMINATION TYPE: XR chest 2V DATE OF EXAM: 02/21/2024 8:50 PM CLINICAL INDICATION: Possible overdose, altered mental status COMPARISON: None TECHNIQUE: XR chest 2V Frontal view of the chest. FINDINGS: Lungs/Pleura: There is no evidence of pleural effusion, focal consolidation, or pneumothorax. Pulmonary vascularity: Unremarkable. Heart/mediastinum: Cardiomediastinal silhouette is unremarkable. Musculoskeletal: No acute osseous pathology. Other findings: None IMPRESSION: No acute cardiopulmonary disease/process.
== END 2024-03-01 14:21 | disposition home or self-care (01) | DRG 754 ==
LOC: 3MHU 23:35 → UNDOADMIN 02-25 23:15 → UNDODISIN 03-01 14:21
PROVIDERS: ADMIT Psychiatry & Neurology Psychiatry; ATTEND Psychiatry & Neurology Psychiatry
DX: F32.9 Major depressive disorder, single episode, unspecified (principal); F43.10 Post-traumatic stress disorder, unspecified; F12.10 Cannabis abuse, uncomplicated; F15.10 Other stimulant abuse, uncomplicated; F11.10 Opioid abuse, uncomplicated; F14.10 Cocaine abuse, uncomplicated; F10.10 Alcohol abuse, uncomplicated; R45.851 Suicidal ideations; N83.201 Unspecified ovarian cyst, right side; F17.210 Nicotine dependence, cigarettes, uncomplicated; F17.290 Nicotine dependence, other tobacco product, uncomplicated; K58.9 Irritable bowel syndrome, unspecified; F41.0 Panic disorder [episodic paroxysmal anxiety]; F60.3 Borderline personality disorder; F15.14 Other stimulant abuse with stimulant-induced mood disorder; N80.9 Endometriosis, unspecified; G89.29 Other chronic pain; G47.00 Insomnia, unspecified; Z53.29 Procedure and treatment not carried out because of patient's decision for other reasons; Z71.6 Tobacco abuse counseling; Z71.41 Alcohol abuse counseling and surveillance of alcoholic; Z71.51 Drug abuse counseling and surveillance of drug abuser; Z86.19 Personal history of other infectious and parasitic diseases; Z71.89 Other specified counseling; Z79.899 Other long term (current) drug therapy; Z88.5 Allergy status to narcotic agent
CPT/HCPCS: 93005

== ENCOUNTER 2024-10-30 21:46 | Emergency (ER) | payer OTHER ==
[2024-10-30 21:53] VITALS: BP 122/78; PULSE 70; RESP 18; TEMP 97.5
--- NOTE | 2024-10-30 21:53 | ED ---
Overdose HPI - General Chief Complaint: Overdose Stated Complaint: drug use Time Seen by Provider: 10/30/24 21:48 Source: EMS, RN notes reviewed, old records reviewed Mode of arrival: EMS - History of Present Illness Initial Comments: This is a 44-year-old female for heroin ingestion not requiring Narcan not currently requiring Narcan as patient is able to be aroused and is breathing on her own, patient did take the Narcan intranasally MD Complaint: accidental overdose -: hour(s) Intent: unwilling to say How Overdose Was Discovered: called family/friend Context: Accidental Overdose: uncertain what happened Treatments Prior to Arrival: none - Related Data Previous Rx's Medication Instructions Recorded Folic Acid 1 mg PO DAILY@1200 tab 03/01/24 Multivitamins, Thera [Multivitamin 1 each PO DAILY tab 03/01/24 (formulary)] Nicotine 14Mg/24Hr Patch [Habitrol] 1 patch TRANSDERM DAILY 14 Days 03/01/24 #14 patch OLANZapine [ZyPREXA] 5 mg PO HS 30 Days #30 tab 03/01/24 Prazosin [Minipress] 1 mg PO HS 30 Days #30 cap 03/01/24 Sertraline [Zoloft] 50 mg PO HS 30 Days #30 tab 03/01/24 Thiamine [Vitamin B-1] 100 mg PO BID tab 03/01/24 hydrOXYzine pamoate [Vistaril] 50 mg PO DAILY PRN 30 Days #60 cap 03/01/24 Allergies Allergy/AdvReac Type Severity Reaction Status Date / Time morphine Allergy Itching, Verified 01/07/24 10:17 RASH/HIVES Review of Systems ROS Statement: Those systems with pertinent positive or pertinent negative responses have been documented in the HPI. ROS Other: All systems not noted in ROS Statement are negative. Past Medical History Past Medical History: Fibromyalgia Additional Past Medical History / Comment(s): endometriosis, IBS, positive hepatitis C, reports a right Ovarian Cyst History of Any Multi-Drug Resistant Organisms: None Reported Additional Past Surgical History / Comment(s): laprascopy Past Psychological History: Anxiety, Bipolar, Depression, Panic Disorder Smoking Status: Current every day smoker, Vaper General Exam General appearance: alert, in no apparent distress Head exam: Present: atraumatic, normocephalic, normal inspection Eye exam: Present: normal appearance, PERRL, EOMI. Absent: scleral icterus, conjunctival injection, periorbital swelling ENT exam: Present: normal exam, mucous membranes moist Neck exam: Present: normal inspection. Absent: tenderness, meningismus, lymphadenopathy Respiratory exam: Present: normal lung sounds bilaterally. Absent: respiratory distress, wheezes, rales, rhonchi, stridor Cardiovascular Exam: Present: regular rate, normal rhythm, normal heart sounds. Absent: systolic murmur, diastolic murmur, rubs, gallop, clicks GI/Abdominal exam: Present: soft, normal bowel sounds. Absent: distended, tenderness, guarding, rebound, rigid Extremities exam: Present: normal inspection, full ROM, normal capillary refill. Absent: tenderness, pedal edema, joint swelling, calf tenderness Back exam: Present: normal inspection Neurological exam: Present: alert, oriented X3, CN II-XII intact Psychiatric exam: Present: normal affect, normal mood Skin exam: Present: warm, dry, intact, normal color. Absent: rash Course Vital Signs 10/30/24 21:51 Temperature 97.5 F L Pulse Rate 70 Respiratory 18 Rate Blood Pressure 122/78 O2 Sat by Pulse 96 Oximetry - Reevaluation(s) Reevaluation #1: 10/31/24 00:36 Medical records reviewed Reevaluation #2: 10/31/24 00:36 Patient's mental status continues to improve throughout ER stay Reevaluation #3: 10/31/24 00:37 Patient informed of results questions answered Reevaluation #4: Was pt. sent in by a medical professional or institution (, PA, [employer], urgent care, hospital, or shelter...) When possible be specific @ -no Did you speak to anyone other than the patient for history (EMS, parent, family, police, friend...)? What history was obtained from this source @ -no Did you review nursing and triage notes (agree or disagree)? Why? @ -agree Are old charts reviewed (outside hosp., previous admission, EMS record, old EKG, old radiological studies, urgent care reports/EKG's, shelter records)? Report findings @ -yes Differential Diagnosis (chest pain, altered mental status, abdominal pain women, abdominal pain men, vaginal bleeding, weakness, fever, dyspnea, syncope, headache, dizziness, GI bleed, back pain, seizure, CVA, palpatations, mental health, musculoskeletal)? @ -prior EKG interpreted by me (3pts min.). @ -yes X-rays interpreted by me (1pt min.). @ -yes negative for acute disease CT interpreted by me (1pt min.). @ -no U/S interpreted by me (1pt. min.). @ -no What testing was considered but not performed or refused? (CT, X-rays, U/S, labs)? Why? @ -none What meds were considered but not given or refused? Why? @ -none Did you discuss the management of the patient with other professionals (professionals i.e. DrMike, PA, [employer], lab, RT, psych nurse, social work associate, cooking chef, teacher, sanitation officer, manager case)? Give summary @ -no Was smoking cessation discussed for >3mins.? @ -no Was critical care preformed (if so, how long)? @ -no Were there social determinants of health that impacted care today? How? (Homelessness, low income, unemployed, alcoholism, drug addiction, transpo rtation, low edu. Level, literacy, decrease access to med. care, retirement, rehab)? @ -none Was there de-escalation of care discussed even if they declined (Discuss DNR or withdrawal of care, Hospice)? DNR status @ -no What co-morbidities impacted this encounter? (DM, HTN, Smoking, COPD, CAD, Cancer, CVA, ARF, Chemo, Hep., AIDS, mental health diagnosis, sleep apnea, morbid obesity)? @ -none Was patient admitted / discharged? Hospital course, mention meds given and route, prescriptions, significant lab abnormalities, going to OR and other pertinent info. @ - Undiagnosed new problem with uncertain prognosis? @ -no Drug Therapy requiring intensive monitoring for toxicity (Heparin, Nitro, Insulin, Cardizem)? @ -no Were any procedures done? @ -no Diagnosis/symptom? @ - Acute, or Chronic, or Acute on Chronic? @ -Acute Uncomplicated (without systemic symptoms) or Complicated (systemic symptoms)? @ -Complicated Side effects of treatment? @ -no Exacerbation, Progression, or Severe Exacerbation? @ -exacerbation Poses a threat to life or bodily function? How? (Chest pain, USA, MT, pneumonia, PE, COPD, DKA, ARF, appy, cholecystitis, CVA, Diverticulitis, Homicidal, Suicidal, threat to staff... and all critical care pts) @ -yes Reevaluation #5: This differential Altered Mental Status: Hypoglycemia, DKA, hypercapnia, ETOH, overdose, CO poisoning, trauma, myxedema coma, HTN encephalopathy, infection, encephalitis, psychosis, intercranial hemorrhage, hepatic encephalopathy, meningitis, CVA, this is not meant to be an all-inclusive list Medical Decision Making - Medical Decision Making 44 female with overdose heroin overdose, inhalation, no acute findings here in the ER patient can be discharged home where she is currently awake and alert - Lab Data Lab Results 10/30/24 Range/Units 21:56 POC Glucose (mg/dL) 115 H (70-110) mg/dL POC Glu Health Care Sanitary Technician ID Elio Aguilar Disposition Clinical Impression: Opiate abuse, continuous, Cannabis use disorder, Polysubstance abuse Disposition: HOME SELF-CARE Condition: Fair Instructions (If sedation given, give patient instructions): Adult Overdose (ED) Is patient prescribed a controlled substance at d/c from ED?: No Referrals: None,Stated [Primary Care Provider] - 1-2 days
[2024-10-30 21:57] LABS: Glucose,Whole Blood 115 mg/dL (70-110)
== END 2024-10-31 01:09 | disposition home or self-care (01) ==
LOC: EC 21:46
DX: F11.10 Opioid abuse, uncomplicated (principal); F12.10 Cannabis abuse, uncomplicated; F17.290 Nicotine dependence, other tobacco product, uncomplicated; Z88.5 Allergy status to narcotic agent
CPT/HCPCS: 36415; 99284